=== PATIENT | male | born 1930 | race Caucasian/White ===

== ENCOUNTER → 2019-01-15 | Outpatient (CLI) | payer OTHER, MEDICARE ==
[~2019-01-15] MED LIST: ALBUTEROL; ALBUTEROL2.5 MG/0.1 IH; AUGMENTIN 875875 MG PO; FLONASE 0.05%50 MCG NS; PREDNISONE50 MG PO; PROTONIX40 M2 PO; TUSSIONEX PENN473 ML PO; XANAX 0.5 MG0.5 M1 PO; ZOCOR 20 MG TAB20 M1 PO
== END ==
LOC: RAD 09:14
DX: M51.36 Other intervertebral disc degeneration, lumbar region (principal)

== ENCOUNTER 2019-08-23 15:17 | Inpatient (IN) | payer OTHER, MEDICARE ==
[~2019-08-23] VITALS: Ht 172.7 cm; Wt 73.9 kg
--- NOTE | ~2019-08-23 | HC ---
[facility] [place] [address] CONSULTATION Name: HEVER MEADE Room #: 356-P ADM IN M.R.#: [id number] Admission: 08/23/19 Attend Phys: Cuong Augustine MD Discharge: Date of : 32 Report #: [id number] THIS REPORT FOR: cc: Janessa Kwon,Adrian Sin MD ~ CC: Janessa Augustine DATE OF SERVICE: 08/27/2019 HISTORY OF PRESENT ILLNESS: This is an 89-year-old white male who was originally admitted to [facility] on 08/23/2019 with increased shortness of breath or chills. He was diagnosed with iksfp-pc-zizlpyq COPD exacerbation. He is rule out COVID-19 and testing has been negative thus far. Denies use of home oxygen. He is a premorbid walker ambulator. He notes he is feeling better today. We are seeing him in rehabilitation medicine consultation. PAST MEDICAL HISTORY: Includes elevated cholesterol, asthma, hypothyroidism, COPD without need for home O2, arrhythmia, status post AICD, and history of degenerative arthritis. MEDICATIONS: Please see the full medication listing. ALLERGIES: No known drug allergies. SOCIAL HISTORY: He lives in a house with his and a son, 2 steps to get in. He did not utilize a gait aid up until just a couple of days prior to admission when he started utilizing a walker. REVIEW OF SYSTEMS: Did not offer any current complaints of chest pain, shortness of breath or abdominal discomfort. PHYSICAL EXAMINATION: GENERAL: An 83-year-old white male in no obvious distress. He is alert, pleasant, oriented, follows basic 1 step commands. VITAL SIGNS: Last recorded temperature 96.9, pulse 76, respirations 18, blood pressure 120/52. HEENT: Facies are symmetric. NEUROLOGIC: Functional range of motion of both upper extremities. Strength is grade 4-/5. DTRs are trace to 1. Lower extremities, no focal calf swelling, functional range of motion, strength is grade 4-/5. DTRs are trace to 1. He indicates he has gotten up and ambulated in the room with the walker. Therapy reports are pending. Tone appeared to be intact both lower extremities. He has a slight wheeze, but does not appear to be short of breath and is in no [facility] [address] [place] [address] CONSULTATION Name: HEVER MEADE Room #: 356-P [facility] IN [facility].#: [id number] Admission: 08/23/19 Attend Phys: Cuong Augustine MD Discharge: Date of : 32 Report #: [id number]. IMPRESSION: An 83-year-old white male with the following problem list: 1. Chronic obstructive pulmonary disease exacerbation. 2. COVID negative x 1. 3. Chronic kidney disease. 4. History of arrhythmia, status post automatic implantable cardioverter-defibrillator. 5. History of asthma. 6. Degenerative arthritis. 7. Elevated cholesterol. PLAN: Therapy evaluations are underway. The patient indicates he has been up ambulatory in the room with staff utilizing his walker. We would hope that he will be able to return directly home as he further medically stabilizes. At this point, we will continue to follow along with you regarding his rehab therapy needs. By: [id number] [id number] Adrian Walker MD /nt
[2019-08-23 15:18] VITALS: BP 105/56
[2019-08-23 16:05] LABS: URINE BILIRUBIN NEGATIVE (Negative); URINE BLOOD 1+ (Negative); URINE CLARITY CLEAR; URINE COLOR YELLOW; URINE GLUCOSE-RANDOM* NEGATIVE (Negative); URINE KETONES NEGATIVE (Negative); URINE LEUKOCYTES-REFLEX NEGATIVE (Negative); URINE NITRITE-REFLEX NEGATIVE (Negative); URINE PROTEIN (DIPSTICK) NEGATIVE (Negative); URINE UROBILINOGEN 0.2 E.U./dl (0.2-1.0)
[2019-08-23 16:10] LABS: SQUAMOUS None Seen /LPF (0-3)
[2019-08-23 16:11] LABS: BACTERIA-REFLEX None Seen /HPF (None Seen); CASTS None Seen /LPF (None Seen); CRYSTALS None Seen /LPF (None Seen); URINE RBC 0-2 Rare /HPF (0-2); URINE WBC-REFLEX None Seen /HPF (0-5)
[2019-08-23 16:35] LABS: ABSOLUTE NEUTROPHILS 11.5 thou/uL (1.4-8.2); BASOPHILS 0.3 % (0.0-2.0); EOSINOPHILS 0.1 % (0.0-3.0); HEMATOCRIT 33.3 % (42.0-52.0); LYMPHOCYTES 2.1 % (24.0-44.0); MCH 33.1 pg (26.0-34.0); MCHC 33.1 g/dL (28.0-37.0); MCV 99.8 fL (80.0-100.0); MONOCYTES 3.5 % (1.0-8.0); PLATELET COUNT 200 thou/uL (150-400); RBC 3.34 mil/uL (4.50-6.00); RDW 16.4 % (10.5-14.5); WBC 12.2 thou/uL (4.0-11.0)
[2019-08-23 16:48] LABS: INR 1.5; PROTIME 15.6 Seconds (9.3-11.4)
[2019-08-23] MEDS ORDERED: ASA81BEC PO (16:48)
[2019-08-23] MEDS ORDERED: TYLENOL325 M1 PO (16:48)
[2019-08-23] MEDS ORDERED: AMIODARONE HCL400 MG PO (16:48)
[2019-08-23] MEDS ORDERED: LIPITOR10 MG PO (16:49)
[2019-08-23] MEDS ORDERED: CALCIUM500 MG PO (16:49)
[2019-08-23] MEDS ORDERED: CENTRUM SILVER1 EAC7 PO (16:49)
[2019-08-23] MEDS ORDERED: VITAMIN D310 MC3 PO (16:50)
[2019-08-23] MEDS ORDERED: PRADAXA75 MG PO (16:50)
[2019-08-23] MEDS ORDERED: FUROSEMIDE 40 M40 MG PO (16:51)
[2019-08-23] MEDS ORDERED: FISH OIL 1,0001 EAC9 PO (16:51)
[2019-08-23] MEDS ORDERED: PLAQUENIL200 MG PO ×2 (16:51→16:59)
[2019-08-23] MEDS ORDERED: LEVO-T50 MCG PO (16:51)
[2019-08-23] MEDS ORDERED: PEPTO-BISMOL262 M1 PO (16:52)
[2019-08-23] MEDS ORDERED: SENNA PLUS TAB1 EACH PO (16:52)
[2019-08-23] MEDS ORDERED: SPIRONOLACTONE25 MG PO (16:53)
[2019-08-23 17:04] LABS: ANION GAP 12 mmol/L (7-16); BUN 47 mg/dL (7-18); CALCIUM 8.9 mg/dL (8.5-10.1); CHLORIDE 99 mmol/L (98-107); CO2 22 mmol/L (21-32); CREATININE 2.5 mg/dL (0.7-1.3); GLUCOSE 99 mg/dL (74-106); POTASSIUM 4.9 mmol/L (3.5-5.1); SODIUM 133 mmol/L (136-145)
[2019-08-23 17:13] LABS: ALBUMIN 3.1 g/dL (3.4-5.0); MAGNESIUM 1.4 mg/dL (1.8-2.4); SGOT 33 U/L (15-37); SGPT 50 U/L (30-65); TOTAL BILIRUBIN 1.1 mg/dL (<0.1-1.0); TOTAL PROTEIN 7.8 g/dL (6.4-8.2); TROPONIN-I <0.06 ng/mL (<0.06)
[2019-08-23] MEDS ORDERED: MAG-OXIDE400 MG PO ×2 (18:10→18:21)
[2019-08-23] MEDS ORDERED: AUGMENTIN 875-1 EACH PO (18:10)
[2019-08-23] MEDS ORDERED: PREDNISONE 20 M20 MG PO ×2 (18:10→18:21)
[2019-08-23] MEDS ORDERED: ALBUTEROL2.5 MG/31 INH (18:21)
[2019-08-23 19:57] VITALS: BP 108/50
[2019-08-23 20:37] VITALS: BP 127/50
[2019-08-23 22:28] VITALS: BP 110/54
[2019-08-24 04:57] LABS: HEMATOCRIT 29.6 % (42.0-52.0); HEMOGLOBIN 9.6 gm/dL (14.0-18.0); MCH 32.9 pg (26.0-34.0); MCHC 32.5 g/dL (28.0-37.0); MCV 101.3 fL (80.0-100.0); RBC 2.93 mil/uL (4.50-6.00); RDW 16.7 % (10.5-14.5); WBC 15.1 thou/uL (4.0-11.0)
[2019-08-24 05:10] LABS: CALCIUM 8.2 mg/dL (8.5-10.1); CREATININE 2.5 mg/dL (0.7-1.3); MAGNESIUM 1.7 mg/dL (1.8-2.4); POTASSIUM 5.2 mmol/L (3.5-5.1)
[2019-08-24 08:07] VITALS: BP 146/64
--- NOTE | 2019-08-24 08:15 | EKG ---
[facility] [place] [address] ELECTROCARDIOGRAM REPORT Name: HEVER MEADE Room #: 356-P ADM IN M.R.#: [id number] Admission: 08/23/19 Attend Phys: Cuong Augustine MD Discharge: Date of : 32 Report #: [id number] THIS REPORT FOR: cc: Janessa Kwon,Janessa Doe,Flynn Moctezuma MD [facility] ~ THIS REPORT FOR: //name// [facility] ED Test Date: 2019-08-23 Test Time: 15:30:33 Pat Name: HEVER MEADE Department: Room: 356 Gender: M Bead Inspector: CLINT : 1930 Requested By: Jero Fair Order Number: [id number] MD: Flynn Subramanian Measurements Intervals Adrian Rate: 81 P: MN: QRS: 13 QRSD: 145 T: 20 QT: 437 QTc: 508 Interpretive Statements Probable sinus rhythm Multiple ventricular premature complexes Right bundle branch block Baseline wander in lead(s) I,II,III,aVR,aVL,aVF,V4 Compared to ECG 04/06/2013 06:47:18 No significant change was found Electronically Signed On 08-24-2019 8:14:14 CDT by Flynn Subramanian [email or web address] <ELECTRONICALLY SIGNED> By: Flynn Subramanian MD, [facility] 08/24/19 0814 29 29 Flynn Subramanian MD, [facility] /EPI
[2019-08-24 10:59] VITALS: BP 130/47
[2019-08-24 17:33] VITALS: BP 120/49
[2019-08-24 21:33] VITALS: BP 132/51
[2019-08-24 23:23] LABS: URINE BILIRUBIN NEGATIVE (Negative); URINE BLOOD 2+ (Negative); URINE CLARITY CLEAR; URINE COLOR YELLOW; URINE GLUCOSE-RANDOM* NEGATIVE (Negative); URINE KETONES NEGATIVE (Negative); URINE LEUKOCYTES NEGATIVE (Negative); URINE NITRITE NEGATIVE (Negative); URINE PROTEIN (DIPSTICK) NEGATIVE (Negative); URINE SPECIFIC GRAVITY 1.015 (1.005-1.035); URINE UROBILINOGEN 0.2 E.U./dl (0.2-1.0)
[2019-08-24 23:30] LABS: BACTERIA 1-9 Few /HPF (None Seen); CASTS None Seen /LPF (None Seen); CRYSTALS None Seen /LPF (None Seen); SQUAMOUS None Seen /LPF (0-3); URINE RBC 0-2 Rare /HPF (0-2); URINE WBC None Seen /HPF (0-5)
[2019-08-25 05:55] VITALS: BP 136/56
[2019-08-25 06:30] LABS: MCH 32.6 pg (26.0-34.0); MCHC 32.2 g/dL (28.0-37.0); MCV 101.1 fL (80.0-100.0); RBC 2.77 mil/uL (4.50-6.00); RDW 16.6 % (10.5-14.5); WBC 16.3 thou/uL (4.0-11.0)
[2019-08-25 06:45] LABS: CALCIUM 8.2 mg/dL (8.5-10.1); CREATININE 2.2 mg/dL (0.7-1.3); POTASSIUM 4.7 mmol/L (3.5-5.1)
[2019-08-25 11:39] VITALS: BP 136/60
[2019-08-25 19:29] VITALS: BP 112/46
[2019-08-26 05:00] VITALS: BP 122/52
[2019-08-26 08:27] VITALS: BP 120/65
[2019-08-26 18:36] VITALS: BP 137/57
[2019-08-27 05:28] VITALS: BP 145/62
[2019-08-27 09:18] VITALS: BP 130/68
[2019-08-27 11:55] VITALS: BP 120/52
[2019-08-27 15:00] VITALS: BP 120/52
[2019-08-27 16:00] VITALS: BP 141/58
[2019-08-27 20:16] VITALS: BP 110/67
[2019-08-28 04:30] VITALS: BP 124/58
[2019-08-28 08:30] VITALS: BP 136/56
[2019-08-28 20:57] VITALS: BP 142/67
[2019-08-29 05:00] VITALS: BP 128/65
[2019-08-29 07:16] VITALS: BP 129/67
[2019-08-29] MEDS ORDERED: LEVAQUIN 500 M500 M3 PO (08:24)
[2019-08-29] MEDS ORDERED: PREDNISONE 5 MG5 M1 PO (08:29)
[2019-08-29 10:39] VITALS: BP 120/52
== END 2019-08-29 13:41 | disposition home health service (06) | DRG 189 ==
LOC: ER 15:17 → EROBS 18:52 → 3W 18:52 → 4S 08-27 18:03
PROVIDERS: Emergency Medicine; Hospitalist; Nurse Practitioner Family; ADMIT Hospitalist
DX: J96.00 Acute respiratory failure, unspecified whether with hypoxia or hypercapnia (principal); R65.11 Systemic inflammatory response syndrome (SIRS) of non-infectious origin with acute organ dysfunction; J44.1 Chronic obstructive pulmonary disease with (acute) exacerbation; E78.00 Pure hypercholesterolemia, unspecified; E83.42 Hypomagnesemia; B97.4 Respiratory syncytial virus as the cause of diseases classified elsewhere; M19.90 Unspecified osteoarthritis, unspecified site; N18.3 Chronic kidney disease, stage 3 (moderate); Z20.828 Contact with and (suspected) exposure to other viral communicable diseases; Z79.82 Long term (current) use of aspirin; Z95.810 Presence of automatic (implantable) cardiac defibrillator; Z79.899 Other long term (current) drug therapy
CPT/HCPCS: 10102; 10779; 10879

== ENCOUNTER 2019-11-15 11:55 | Inpatient (IN) | payer OTHER, MEDICARE ==
[~2019-11-15] VITALS: Ht 167.6 cm; Wt 65.8 kg
--- NOTE | ~2019-11-15 | HC ---
[facility] [place] [address] CONSULTATION Name: HEVER MEADE Room #: 459-P [facility] IN M.R.#: [id number] Admission: 11/15/19 Attend Phys: Maurice Slater MD Discharge: 11/17/19 Date of : 32 Report #: [id number] THIS REPORT FOR: cc: Janessa Kwon,Adrian Sin MD ~ CC: Janessa Slater DATE OF SERVICE: 11/17/2019 HISTORY OF PRESENT ILLNESS: The patient is an 89-year-old white male who was originally admitted to [facility] on 11/15/2019 with increased falls, 3 falls over the last few days. He has generalized weakness. He had some right lower extremity pain. Knee x-ray was negative. CT of the head was negative. He was diagnosed with utfja-an-ehcvoli renal failure with his creatinine up to 3.4 with baseline usually at 2.2. Also he had significant hyponatremia with sodium down to 127. He was given hypertonic saline and is being monitored regarding his renal function. Creatinine has improved down from 3.4-2.4. He has medical complexity with generalized debilitation. We are seeing him in rehabilitation medicine consultation. PAST MEDICAL HISTORY: Prior medical history includes COPD. He has had a past, AICD. He has a history of asthma, arrhythmia, atrial fibrillation, [place] in 2015, and arthritis. MEDICATIONS: Please see the full medication listing. ALLERGIES: No known drug allergies. SOCIAL HISTORY: He lives in a house with his , although he was actually caring for his . She is now staying with family in [place]. There are 2 steps into the house. There is a son that lives there as well, but he apparently has had a prior CVA and would not be able to assist too much. There is a daughter in [place] and the plan is to go to an assisted living facility in [place] outside of [place]. Daughter in [place] apparently is in the medical field. REVIEW OF SYSTEMS: Did not offer any current complaints of chest pain, shortness of breath or abdominal discomfort. PHYSICAL EXAMINATION: GENERAL: This is an 89-year-old white male in no obvious distress. VITAL SIGNS: Last recorded temperature 97.2, pulse 54, respirations 16, blood pressure 125/59. The patient is alert. HEENT: [place] [address] CONSULTATION Name: HEVER MEADE Room #: 459-P [facility] IN .R.#: [id number] Admission: 11/15/19 Attend Phys: Maurice Slater MD Discharge: 11/17/19 Date of : 32 Report #: [id number] NEUROLOGIC: Facies are symmetric. He follows basic 1 step commands. EXTREMITIES: Functional range of motion of both upper extremities. Strength is probably grade 4-/5. DTRs are trace to 1. Lower extremities: He has some scattered bruises over his lower extremities, no erythema, no focal knee swelling. Has reasonable range of motion. Some venous stasis type changes distally. He is mod assist, sit to stand. Gait was 15 feet, max assist. He can walk up to 10 feet and then his knees start buckling. Lower extremity dressing is mod assist. ASSESSMENT: This is an 89-year-old white male with the following problem list: 1. Medical complexity with generalized debilitation. 2. Acute on chronic renal insufficiency. 3. Hyponatremia. 4. Chronic obstructive pulmonary disease. 5. Prior automatic implantable cardioverter defibrillator. 6. History of gait instability with multiple falls. 7. Hypomagnesemia. 8. Moderate protein-calorie malnutrition. PLAN: The patient is a candidate for an acute -[place] inpatient rehabilitation stay. Can plan on transfer when medically cleared and a bed available. By: 1135 1715 Adrian Walker MD /nt
--- NOTE | ~2019-11-15 | EMS ---
[place] [id number] EMS Patient Care Report Name: HEVER MEADE Room #: 459-P [facility] IN M.R.#: [id number] Admission: 11/15/19 Attend Phys: Maurice Slater MD Discharge: 11/17/19 Date of : 32 Report #: [id number] THIS REPORT FOR: //name// Report Transmitted: 11/18/2019 02:18 EMS Care Summary [place], [place]/[facility] Incident [id number] @ 11/15/2019 11:[address] [place] [address] Patient HEVER MEADE Male, 89 Years 1930 Patient Address [address] [place] [address] Patient History Chronic Obstructive Pulmonary Disease (COPD),Pacemaker/AICD,Hyperlipidemia,Cardiac Condition - Other, Patient Allergies No known allergies, Patient Medications Prednisone, Amiodarone, Furosemide, Spironolactone, Atorvastatin, Chief Complaint Weakness Disposition Transported No Lights/[place] Reason Breathing Problem Transported To [facility] Narrative Called to the scene for SOB. Upon arrival, pt was GRAFF x 3 being assisted out to the EMS cot and then loaded into the ambulance w/o incident. Pt Granddaughter reported he has had generalized weakness for past 5-7 days, falls [facility] [address] [place] [address] EMS Patient Care Report Name: HEVER MEADE Room #: 459-P [facility] IN .R.#: [id number] Admission: 11/15/19 Attend Phys: Maurice Slater MD Discharge: 11/17/19 Date of : 32 Report #: [id number] x 3 since Friday with a possible left knee or leg injury. They request transport to [facility] ER for further eval & tx. Vitals obtained. 4 Lead. 20g IV and D-stick. Vitals obtained. En route: no changes. RR to [facility]. Arrived: pt taken to ER #2, pt care & report to ER staff. Initial Vitals @11:41P: 63,CO: 1,SpO2: 97, @11:35P: 39,CO: 2,SpO2: 96, @11:34P: 74,R: 16,BP: 111/62,Pain: 0/10,GCS: 15,SpO2: 94,Revised Trauma: 12, @11:42P: 61,BP: 126/71,Pain: 0/10,GCS: 15,Glucose: 84,SpO2: 97,MS Suspected: false Assessments @11:30MENTAL:Person Oriented,Time Oriented,Place Oriented,Event Oriented,SKIN:HEENT:LUNG SOUNDS:ABDOMEN:PELVIS//GI:EXTREMITIES:Left Leg: Other,Left Arm: No Abnormalities,Right Arm: No Abnormalities,Right Leg: No Abnormalities,PULSE:Radial: 2+ Normal,NEURO:No Abnormalities, Impression Generalized Weakness Procedures @11:41Saline Lock 8cc (20 ga) Site: Antecubital-LeftResponse: UnchangedSucceeded@11:463-Lead ECGResponse: UnchangedSucceeded@11:46StretcherResponse: Unchanged@11:30ALS AssessmentResponse: UnchangedSucceeded Timeline 11:23,Call Received 11:23,Dispatch Notified 11:25,Dispatched 11:25,En Route 11:29,On Scene 11:30,At Patient 11:30,ALS Assessment,Response: UnchangedSucceeded, 11:34,BP: 111/62 M,PULSE: 74,RR: 16 R,SPO2: 94 Ox,ETCO2: ,BG: ,PAIN: 0,GCS: 15, 11:35,BP: / M,PULSE: 39,RR: R,SPO2: 96 Ox,ETCO2: ,BG: ,PAIN: ,GCS: , 11:41,Saline Lock 8cc 20 ga Site: Antecubital-Left,Response: UnchangedSucceeded, 11:41,BP: / M,PULSE: 63,RR: R,SPO2: 97 Ox,ETCO2: ,BG: ,PAIN: ,GCS: , 11:42,BP: 126/71 M,PULSE: 61,RR: R,SPO2: 97 Ox,ETCO2: ,B,PAIN: 0,GCS: 15, 11:44,Depart Scene 11:46,3-Lead ECG,Response: UnchangedSucceeded, 11:46,Stretcher,Response: Unchanged 11:53,At Destination 12:18,Call Closed [address] [address] EMS Patient Care Report Name: HEVER MEADE [place] Room #: 459-P [facility] IN [facility].#: [id number] Admission: 11/15/19 Attend Phys: Maurice Slater MD Discharge: 11/17/19 Date of : 32 Report #: [id number] Disclaimer v1.1 Copyright 2020 [employer] This EMS Care Summary contains data elements from the applicable legal record (which may be displayed differently). It is designed to provide pertinent information for the following purposes: continuity of care, clinical quality, and state data reporting. The complete legal record is available to ED staff and administrators of the receiving hospital in [facility]'s Patient Tracker. All data is provided "as is."
[~2019-11-15 11:55] MED LIST changes: +ALBUTEROL2.5 MG/31 INH; +AMIODARONE HCL400 MG PO; +ASA81BEC PO; +AUGMENTIN 875-1 EACH PO; +CALCIUM500 MG PO; +CENTRUM SILVER1 EAC7 PO; +FISH OIL 1,0001 EAC9 PO; +FUROSEMIDE 40 M40 MG PO; +LEVAQUIN 500 M500 M3 PO; +LEVO-T50 MCG PO; +LIPITOR10 MG PO; +MAG-OXIDE400 MG PO; +PEPTO-BISMOL262 M1 PO; +PLAQUENIL200 MG PO; +PRADAXA75 MG PO; +PREDNISONE 20 M20 MG PO; +PREDNISONE 5 MG5 M1 PO; +SENNA PLUS TAB1 EACH PO; +SPIRONOLACTONE25 MG PO; +TYLENOL325 M1 PO; +VITAMIN D310 MC3 PO
[2019-11-15 11:56] VITALS: BP 129/75
[2019-11-15 12:36] LABS: ABSOLUTE NEUTROPHILS 10.9 thou/uL (1.4-8.2); BASOPHILS 0.7 % (0.0-2.0); EOSINOPHILS 0.2 % (0.0-3.0); HEMATOCRIT 29.4 % (42.0-52.0); HEMOGLOBIN 9.7 gm/dL (14.0-18.0); LYMPHOCYTES 9.5 % (24.0-44.0); MCH 31.6 pg (26.0-34.0); MCV 95.6 fL (80.0-100.0); MONOCYTES 7.3 % (1.0-8.0); PLATELET COUNT 274 thou/uL (150-400); POLYS 82.3 % (36.0-66.0); RBC 3.07 mil/uL (4.50-6.00); WBC 13.2 thou/uL (4.0-11.0)
[2019-11-15 12:50] LABS: CALCIUM 8.5 mg/dL (8.5-10.1); CREATININE 3.4 mg/dL (0.7-1.3); POTASSIUM 4.9 mmol/L (3.5-5.1)
[2019-11-15 12:53] LABS: ALBUMIN 2.6 g/dL (3.4-5.0); TOTAL BILIRUBIN 0.8 mg/dL (0.2-1.0); TOTAL PROTEIN 6.9 g/dL (6.4-8.2)
[2019-11-15 13:35] LABS: MAGNESIUM 1.5 mg/dL (1.8-2.4); TROPONIN-I <0.06 ng/mL (<0.06)
[2019-11-15 13:42] LABS: URINE BILIRUBIN NEGATIVE (Negative); URINE BLOOD 3+ (Negative); URINE CLARITY CLEAR; URINE COLOR YELLOW; URINE GLUCOSE-RANDOM* NEGATIVE (Negative); URINE KETONES NEGATIVE (Negative); URINE LEUKOCYTES-REFLEX NEGATIVE (Negative); URINE NITRITE-REFLEX NEGATIVE (Negative); URINE PROTEIN (DIPSTICK) NEGATIVE (Negative); URINE SPECIFIC GRAVITY 1.015 (1.005-1.035); URINE UROBILINOGEN 0.2 E.U./dl (0.2-1.0)
[2019-11-15 13:54] LABS: BACTERIA-REFLEX 1-9 Few /HPF (None Seen); SQUAMOUS None Seen /LPF (0-3); URINE RBC 3-10 Few /HPF (0-2); URINE WBC-REFLEX None Seen /HPF (0-5)
[2019-11-15 14:00] LABS: CRYSTALS None Seen /LPF (None Seen)
[2019-11-15 14:17] LABS: APTT 59.7 Seconds (24.5-32.8); INR 1.5; PROTIME 15.4 Seconds (9.3-11.4)
--- NOTE | 2019-11-15 14:23 | EKG ---
[facility] [place] [address] ELECTROCARDIOGRAM REPORT Name: HEVER MEADE Room #: REG [facility]#: [id number] Admission: 11/15/19 Attend Phys: Discharge: Date of : 32 Report #: [id number] THIS REPORT FOR: cc: Janessa Kwon Diane C. DO Couchonnal, Luis F. MD ~ THIS REPORT FOR: //name// [facility] ED Test Date: 2019-11-15 Test Time: 12:19:52 Pat Name: HEVER MEADE Department: Room: Gender: Staff Auditor: [facility] : 1930 Requested By: Jero Fair Order Number: [id number] MD: Sonny Dow Measurements Intervals [place] Rate: 67 P: 33 NM: 216 QRS: 29 QRSD: 156 T: 5 QT: 458 QTc: 484 Interpretive Statements Sinus rhythm Borderline prolonged NM interval Right bundle branch block Compared to ECG 08/23/2019 15:30:33 Ventricular premature complex(es) no longer present Electronically Signed On 11-15-2019 14:23:19 CDT by Sonny Dow [email or web address] <ELECTRONICALLY SIGNED> By: Sonny Dow MD 11/15/19 1423 1219 1219 Sonny Dow MD /EPI
[2019-11-15 15:37] VITALS: BP 152/57
[2019-11-15 15:48] VITALS: BP 140/55
[2019-11-15] MEDS ORDERED: HYDROXYCHLOROQ200 M1 PO (16:55)
[2019-11-16 06:00] LABS: ABSOLUTE NEUTROPHILS 7.1 thou/uL (1.4-8.2); BASOPHILS 0.2 % (0.0-2.0); EOSINOPHILS 0.8 % (0.0-3.0); LYMPHOCYTES 12.6 % (24.0-44.0); MCH 32.2 pg (26.0-34.0); MCHC 33.3 g/dL (28.0-37.0); MCV 96.6 fL (80.0-100.0); MONOCYTES 6.5 % (1.0-8.0); PLATELET COUNT 231 thou/uL (150-400); POLYS 79.9 % (36.0-66.0); RBC 2.79 mil/uL (4.50-6.00); WBC 8.9 thou/uL (4.0-11.0)
[2019-11-16 06:35] LABS: CALCIUM 7.5 mg/dL (8.5-10.1); CREATININE 2.6 mg/dL (0.7-1.3); MAGNESIUM 2.6 mg/dL (1.8-2.4); POTASSIUM 4.6 mmol/L (3.5-5.1)
[2019-11-16 07:12] VITALS: BP 118/49
[2019-11-16 11:00] VITALS: BP 118/49
--- NOTE | 2019-11-16 11:56 | NUR ---
PT ADMITTED RELATED TO FALLING, WEAKNESS, MACHO, CKD. CM REVIEWED CHART AND SPOKE WITH CARE TEAM. CM MET WITH PT AND HIS GDTR AT BEDSIDE THIS DAY. PT IS A&O X4 ALTHOUGH SLEEPY. PT INDICATED HE LIVES IN A HOUSE WITH HIS SPOUSE AND SON. HE INDICATED 2 STEPS TO ENTER AND NO STEPS HE USES INSIDE. 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 PT INDICATED HE HAD BEEN INDEPENENT WITH ADLS STOCKFEED MILLER. PT'S GDTR NAMRATA INDICATED THAT PT'S DTR ENDER [facility]MONTE [phone] [phone] IS BEST CONTACT AND HC DPOA. GDTR INDICATED THAT THEY WERE SUPPOSED TO HAVE PD SERVICES THROUGH [facility] STARTING TODAY. PT INDICATED HE HAD BEEN ON SERCICES WITH [facility] AND HAD [facility] IN THE PAST. CM TOREACH OUR TO DTR AND FOLLOW INDICATED WITH DC PLANNING.
[2019-11-16 16:00] VITALS: BP 124/54
[2019-11-16 20:05] VITALS: BP 129/51
--- NOTE | 2019-11-16 20:27 | NUR ---
ASSUMED PT CARE AT 0700. ON ROOM AIR. ALERT X ORIENTED X 3-4. PT IS WEAK, WORKED WITH PT, 2 PERSON ASST FOR SAFETY USING A GAIT BELT AND WALKER. IV LEFT FA WITH NS RUNNING AT 100ML/HR.NO C/O PAIN. TELE PATIENT. CALL LIGHT IN REACH. FALL PRECT IN PLACE. HOURLY ROUNDING DONE. SHIFT REPORT GIVEN TO NIGHT NURSE.
[2019-11-17 05:52] LABS: CALCIUM 7.7 mg/dL (8.5-10.1); CREATININE 2.3 mg/dL (0.7-1.3); MAGNESIUM 2.3 mg/dL (1.8-2.4); POTASSIUM 4.6 mmol/L (3.5-5.1)
[2019-11-17 08:00] VITALS: BP 125/59
[2019-11-17 08:56] LABS: CALCIUM 7.7 mg/dL (8.5-10.1); CREATININE 2.4 mg/dL (0.7-1.3); PHOSPHORUS 3.4 mg/dL (2.5-4.9)
--- NOTE | 2019-11-17 09:20 | NUR ---
progress pt slept most of shift incontinent of urine at times buttocks pink from sitting on bedpan cleansed and barrier cream applied advised pt not to stay on bedpans that long. voiding qs vss continue poc.
--- NOTE | 2019-11-17 10:30 | NUR ---
RD consult received for possible wt loss hx. Admit with weakness, falling, MACHO. Geriatric TRIMMING ASSEMBLER has identified sarcopenia with reduced library clerk strength measurements. [employer] wts show 163 lb in August and 155 lb in July, however pt states his usual wt always around 145 lb and he verbalizes no wt loss and good appetite. On renal diet-does have hx CKD and current MACHO improving with IVF administered, bun/creatinine decreasing. K and phos wnl. Would recommend discontinue renal restriction and consider just 2g Na diet to provide least restrictive diet for pt. Otherwise low nutrition risk
--- NOTE | 2019-11-17 10:33 | NUR ---
Recommend remove renal restricted diet and change to 2g Na. Pt bun/cr improving with IVF and rehydration. K+ and phos wnl. Need a physician order to liberalize diet.
--- NOTE | 2019-11-17 10:36 | NUR ---
PT AND OT RECOMMENDING POST ACUTE CARE STAY. CM CALLED AND SPOKE WITH PT'S DTR WHO LIVES IN [facility]. SHE INDICATED THAT THEY ARE RECEPTIVE TO SNF OR ACUTE REHAB WHICHEVER IS APPROPRIATE. 5N CONSULT ENTERED. SHE INDICATED THAT HER MOM IS STAYING WITH HER AT THE MOMENT AND THAT THEY ARE LOOKING INTO AL PLACEMENT NEAR HER. CM TO FOLLOW INDICATED WITH DC PLANNING.
[2019-11-17 11:00] VITALS: BP 125/59
--- NOTE | 2019-11-17 13:55 | NUR ---
5N ASSESSED AND INDICATED THAT PT WOULD BE A GOOD CANDIDATE FOR 5N ACUTE INPATIENT REHAB. CARE TEAM INDICATED PT WOULD BE MEDICALLY STABLE TO DC TO 5N THIS DAY. CM MET WITH PT AND HE IS AWARE AND AGREEABLE. CM CALLED AND NOTIFIED PT'S DTR SHE IS AWARE AND AGREEABLE.
[2019-11-17] MEDS ORDERED: VOLTAREN100 GM TOP (13:57)
[2019-11-17] MEDS ORDERED: CALCIUM 600 +1 EAC1 PO (13:57)
--- NOTE | 2019-11-17 20:05 | NUR ---
ASSUMED PT CARE AT 0700. PT ALERT X ORIENTED X 4, FORGETFUL AT TIMES.ON ROOM AIR, ON RENAL DIET. 2 PERSON ASST FOR SAFETY.LBM TODAY MORNING. RN CALLED PT'S SON TODAY MORNING THE PT SAID, HE NEED TO TALK TO HIS , SON SAID HE WILL CALL BACK LATER. PT MOVED TO 5N AND PT'S DAUGHTER WAS INFORMED BY THE CM REGARDING THE TRANSFER. REPORT GIVEN TO RN AT 5N.
== END 2019-11-17 15:11 | DRG 70 ==
LOC: ER 11:55 → 4W 14:24 → EROBS 14:24 → 4W 15:51
PROVIDERS: Emergency Medicine; Nurse Practitioner; ADMIT Internal Medicine; ATTEND Internal Medicine
DX: G93.41 Metabolic encephalopathy (principal); N17.0 Acute kidney failure with tubular necrosis; E43 Unspecified severe protein-calorie malnutrition; E44.0 Moderate protein-calorie malnutrition; E87.1 Hypo-osmolality and hyponatremia; E83.42 Hypomagnesemia; J44.9 Chronic obstructive pulmonary disease, unspecified; E03.9 Hypothyroidism, unspecified; E78.5 Hyperlipidemia, unspecified; M62.84 Sarcopenia; G47.00 Insomnia, unspecified; I48.91 Unspecified atrial fibrillation; N18.9 Chronic kidney disease, unspecified; D64.9 Anemia, unspecified; R31.9 Hematuria, unspecified; H10.9 Unspecified conjunctivitis; Z95.810 Presence of automatic (implantable) cardiac defibrillator; Z68.23 Body mass index [BMI] 23.0-23.9, adult; Z79.01 Long term (current) use of anticoagulants; I25.2 Old myocardial infarction
CPT/HCPCS: 10045

== ENCOUNTER 2019-11-17 14:19 | Inpatient (IN) | payer OTHER, MEDICARE ==
[~2019-11-17] VITALS: Ht 167.6 cm; Wt 65.3 kg
[~2019-11-17 14:19] MED LIST changes: +CALCIUM 600 +1 EAC1 PO; +HYDROXYCHLOROQ200 M1 PO; +VOLTAREN100 GM TOP
--- NOTE | 2019-11-17 16:21 | NUR ---
PT ARRIVED AT 1530 FROM ACUTE. ALERT AND ORIENTED*4 BUT FORGETFUL. FATIGUED AND SLEEPY. VITALS ARE STABLE. C/O PAIN IN BLE, REPOSITIONED. REDNESS NOTED AROUND THE SACRAL AREA, PT ENCOURAGED TO LAY ON THE SIDE. UP WITH 2 MIN-MOD ASSIST, GB AND WALKER. Q1H VISUAL CHECKS. CALL LIGHT WITHIN REACH. FALL PRECAUTIONS IN PLACE
[2019-11-17 19:24] VITALS: BP 123/53
--- NOTE | 2019-11-17 23:13 | NUR ---
ASSUMED CARE OF PT AT 1915. PT IS A&OX3. IS ON ROOM AIR. IS STABLE. HAS BRISING ON HANDS & ARMS. REPORTS PAIN IN BILAT KNEES THAT IS BEING MANAGED WITH ORAL & TOPICAL MEDS & OTHER THERAPUETIC TECHNIQUES. PT HAS OINTMENT ON EYES. PT REPORTED "MY EYES WERE CRUSTING SO THEY PUT THIS SLAVE ON IT". PT IS UP WITH MOD-MAX ASSIST OF 2, STAND, PIVOT WITH GB TO TRANSFER. FALL PRECAUTIONS & HOURLY ROUNDING CONTINUED THIS SHIFT. LABS & VITALS REVIEWED. PT CONSENT FORMS NEED SIGNING & ARE ON THE BEDSIDE TABLE. PT IS CURRENTLY SLEEPING. CALL LIGHT WITHIN REACH. WILL CONTINUE TO MONITOR.
--- NOTE | 2019-11-18 05:15 | NUR ---
Assumed pt care at 0100. A/OX4. Denies pain on assessment. Continent of B&B. Bruising noted on frederick arms r/t anticougalant therapy. Up with moderate assist RW/GB to BSC. Fall precautions in place,calls approx for help.
[2019-11-18 05:55] LABS: HEMATOCRIT 29.5 % (42.0-52.0); HEMOGLOBIN 9.6 gm/dL (14.0-18.0); MCH 31.3 pg (26.0-34.0); MCHC 32.3 g/dL (28.0-37.0); MCV 96.9 fL (80.0-100.0); RBC 3.05 mil/uL (4.50-6.00); RDW 17.2 % (10.5-14.5)
[2019-11-18 06:12] LABS: CALCIUM 7.8 mg/dL (8.5-10.1); CREATININE 2.4 mg/dL (0.7-1.3)
[2019-11-18 08:00] VITALS: BP 126/55
[2019-11-18 15:49] VITALS: BP 126/55
--- NOTE | 2019-11-18 15:50 | NUR ---
Case opened to follow for dc planning. Pt admitted to acute rehab d/t medical complexity and debility. Utility Service Worker spoke with his dtr/dpoa Melodie regarding his dc planning needs. Pt's spouse is currently staying with Melodie in [place], [place] but will be returning home this week. Melodie indicates that the pt, his spouse and their disabled son Jr live in their home of 60 years. They have 2-3 steps to enter, then they can stay on the main level. The pt is normally indep with a rwalker within the home. He had HH per Maral prior to admission for wound care (skin tears on his arm). The pt's dtr was looking into ALFs near her but they are hoping to return home with hh before making "such a big move". Pt's dtr has hired [employer] to provide private duty help T/TH/Sat for 6hrs each day for both of them. They would [facility] to [facility] for RN and therapy f/u. She was advised of team conf on Friday and cm role. Will follow with her and the pt next week to determine ELOS and any other potential dc needs. The pt has a rwalker at home. Will follow.
--- NOTE | 2019-11-18 18:46 | NUR ---
ASSUMED CARE AT SHIFT CHANGE, ALERT AND ORIENTED, VSS AND AFEBRILE. TOLERATES DIET, AND SCHEDULE MEDS GIVEN. PROGRESSING TOWARDS GOALS SLOWLY AND WILL CONTINUE WITH POC.
[2019-11-18 20:35] VITALS: BP 125/48
--- NOTE | 2019-11-19 03:45 | NUR ---
assumed care at approx 1900 evening 11/17. pt lying in bed with head of bed elevated at change of shift. pt alert and oriented x4, appropriate and cooperative. pt voiding per urinal. pt took hs meds with water tolerating well. pt up to w/c to transfer to toilet to have bm tonight. pt appears to be sleeping soundly with hourly rounding checks. bed alarm on and call light in reach. will continue to monitor.
[2019-11-19 08:30] VITALS: BP 113/52
--- NOTE | 2019-11-19 09:45 | NUR ---
Assumed care 0700. Pleasant, cooperative. Up in chair for meals. Gi HERNÁNDEZ was consulted due to warning regarding high Creatinine 2.4 and order for Pradaxa. Gi gave O.K. to give Pradaxa with high Cr. level.
[2019-11-19 19:20] VITALS: BP 116/42
--- NOTE | 2019-11-19 23:20 | NUR ---
Late Day Shift Note: Patient requested second time for Respiratory therapy to give treatment in afternoon. He patiently waited. respiratory department was notified pt. had not been seen all day and wanted treatment. RT department explained his treatments were only as needed. Lung left upper lobe=with slight wheezing confirmed by RT. Pt. felt better after RT tx. Pt. compliant, coopeerative. Assisted to bed after dinner.
--- NOTE | 2019-11-20 02:58 | NUR ---
assumed care at approx 1900 evening 11/18. pt lying in bed with head of bed elevated at change of shift. pt alert and oriented x4, appropriate and cooperative. pt took hs meds with water tolerating well. pt voiding per urinal. pt appears to be sleeping soundly with hourly rounding checks. bed alarm on and call light in reach. will continue to monitor.
[2019-11-20 08:00] VITALS: BP 109/48
--- NOTE | 2019-11-20 12:34 | NUR ---
PATIENT WAS IN BED AWAKE WHEN CARE ASSUMED, ALERT, AND ORIENTED X 2-3, HE IS SAXMAN. LUNGS DIMINISHED IN ALL LOBE PER ASUCULTATION. BS+X4, ABD SOFT, NON-TENDER TO TOUCH. PATIENT IS EATING MEALS, AND DRINKING FLUID FAIRLY WELL. PATIENT CONTINUE TO HAVE HICCUPS, DR. LEAHY NOTIFIED, HE WILL COME AROUND, AND SEE PATIENT. PRN TYRLENOL GIVEN FOR BACK PAIN, WITH PARTIAL EFFECT. PATIENT WORKED WITH PT FOR A SHORT PERIOD OF TIME, NOW BACK IN BED, NO SIGN OF ACUTE DISTRESS NOTED AT THIS TIME, CALL LIGHT IN REACH, FALL PRECAUTION IN PLACE, WILL CONTINUE TO MONITOR.
[2019-11-20 19:50] VITALS: BP 114/50
--- NOTE | 2019-11-21 04:53 | NUR ---
PT IS ALERT AND ORIENTED. HE USES A URINAL HAD AN INCONTINENT EPISODE IN THE NIGHT. PT IS VERY WEAK HE COULD BARELY STAND BY EDGE OF BED WE WERE GETTING HIM READY FOR BED. C/O BACK PAIN GIVEN SOME TYLENOL WITH RELIEF. PT USES VOLTAREN GEL TO MOSTLY HANDS KNEES AND BACK.HE ALSO WAS GIVEN AN ICE ALESSIO TO APPLY TO LEFT HAND FOR PAIN PER HIS REQUEST.BOTTOM IS RED APPLYING ZGUARD.SWALLOWS OKAY. NO LOOSE STOOL IN NOC SHIFT.AFEBRILE. SOUNDS CONGESTED CONTINUES ON RT TREATMENTS.NO DISTRESS NOTED.CALL LIGHT WITHIN REACHFALL PREC IN PLACE.
[2019-11-21 05:09] LABS: HEMATOCRIT 26.4 % (42.0-52.0); HEMOGLOBIN 8.6 gm/dL (14.0-18.0); MCH 31.1 pg (26.0-34.0); MCHC 32.5 g/dL (28.0-37.0); MCV 95.8 fL (80.0-100.0); RBC 2.75 mil/uL (4.50-6.00); RDW 16.8 % (10.5-14.5)
[2019-11-21 05:20] LABS: CALCIUM 7.8 mg/dL (8.5-10.1); CREATININE 2.5 mg/dL (0.7-1.3); MAGNESIUM 1.7 mg/dL (1.8-2.4)
[2019-11-21 08:41] VITALS: BP 110/52
--- NOTE | 2019-11-21 15:01 | NUR ---
PATIENT NEUROTIN HELP AT 1400 - ADVISED BY DR. LEAHY BEING DISCONTINUED.
--- NOTE | 2019-11-21 18:28 | NUR ---
PATIENT ALERT AND ORIENTED X 2-3 - VERY SEDATED THIS MORNING. HAD DIFFICULTY STAYING AWAKE AFTER BREAKFAST - LUNCH WAS POOR CONSUMPTION DUE TO THIS. PATIENT TAKES MEDIATIONS WHOLE AND EASILY. PATIENT WALKED WITH PT AND WAS UP FOR SHORT TIME. DR. LEAHY STOPPED NEUROTIN SUSPECTING CAUSING TO BE LETHARGIC- PATIENT HAS UA ORDERED - UNABLE TO VOID PRIOR TO SHIFT CHANGE AND PASSED ON TO NEXT SHIFT. PATIENT - ONE ASSIST WITH TRANSFERS AND TOLLETING. PATIENT HAS HAD ARTHRITIC DISCOMFORT IN RIGHT HAND AND KNEES DICLOFENAC OINTMENT ON BOARAD TO AID WITH DISCOMFORT. PATIENT ATE DINNER OUT ON THE UNIT AND NOW SLEEPING IN WHEELCHAIR. NO DISCOMFORT WHEN ASKED.
[2019-11-21 19:45] VITALS: BP 108/40
[2019-11-21 23:54] LABS: URINE BILIRUBIN NEGATIVE (Negative); URINE BLOOD 2+ (Negative); URINE CLARITY CLEAR; URINE COLOR YELLOW; URINE GLUCOSE-RANDOM* NEGATIVE (Negative); URINE KETONES NEGATIVE (Negative); URINE LEUKOCYTES-REFLEX NEGATIVE (Negative); URINE NITRITE-REFLEX NEGATIVE (Negative); URINE PROTEIN (DIPSTICK) NEGATIVE (Negative); URINE SPECIFIC GRAVITY <= 1.005 (1.005-1.035); URINE UROBILINOGEN 0.2 E.U./dl (0.2-1.0)
--- NOTE | 2019-11-21 23:57 | NUR ---
ASSUMED CARE OF PT AT 1915. PT IS A&OX3. IS ON ROOM AIR. HAS CONGESTED COUGH. IS STABLE. DENIES PAIN AT THIS TIME. IS UP WITH MAX ASSIST OF 2, GB, STAND PIVOT. FALL PRECAUTIONS & HOURLY ROUNDING CONTINUED THIS SHIFT. PT IS SLEEPING AT THIS TIME. CALL LIGHT WITHIN REACH. UA OBTAINED. LABS & VITALS REVIEWED. WILL CONTINUE TO MONITOR.
[2019-11-22 00:21] LABS: BACTERIA-REFLEX None Seen /HPF (None Seen); CASTS None Seen /LPF (None Seen); CRYSTALS None Seen /LPF (None Seen); MUCUS None Seen strn/LPF (None Seen); SQUAMOUS None Seen /LPF (0-3); URINE RBC 0-2 Rare /HPF (0-2); URINE WBC-REFLEX 0-5 Rare /HPF (0-5)
[2019-11-22 06:15] LABS: HEMATOCRIT 28.1 % (42.0-52.0); HEMOGLOBIN 8.9 gm/dL (14.0-18.0); MCH 30.5 pg (26.0-34.0); MCHC 31.7 g/dL (28.0-37.0); MCV 96.1 fL (80.0-100.0); PLATELET COUNT 246 thou/uL (150-400); RBC 2.92 mil/uL (4.50-6.00); RDW 16.8 % (10.5-14.5); WBC 16.8 thou/uL (4.0-11.0)
[2019-11-22 06:27] LABS: CALCIUM 7.9 mg/dL (8.5-10.1); CREATININE 2.8 mg/dL (0.7-1.3); MAGNESIUM 1.6 mg/dL (1.8-2.4); POTASSIUM 5.4 mmol/L (3.5-5.1)
[2019-11-22 08:04] LABS: ANISOCYTOSIS SLIGHT; POIKILOCYTOSIS SLIGHT
[2019-11-22 08:15] VITALS: BP 92/40
--- NOTE | 2019-11-22 11:55 | NUR ---
per bedside nurse pt granddaughter called stated he can not return if his son is going to need inpt pysch help. not safe him returning home rt his falls. [facility]. cm will cont following as needed for dc needs. cm to reach out to family rt dcp.
--- NOTE | 2019-11-22 16:11 | NUR ---
ASSUMED CARES AT 0700. PT AWAKE ALERT AND ORIENTED*4. DENIES PAIN. EXTREME WEAKNESS NOTED THIS AM REQUIRED 2 MAX ASSIST FOR TRANSFERS. PT HAVING MULTIPLE LOOSE STOOLS THIS AM. HOSPITALIST NOTIFIED OF PT'S CONDITION AND ABNORMAL LABS, ORDERS RECEIVED AND CONSULTS CALLED. PT HAS A FUNGAL INFECTION AROUND SACRAL AND BUTTOCK AREA WITH A OPEN SKIN AREA, ORDERS RECEIVED FOR WOUNDCARE ANTIFUNGAL CREAM APPLIED. IV STARTED ON LEFT FOREARM NS INFUSING AT 80ML/HR PER ORDER. PT REPOSITONED Q2H. Q1H VISUAL CHECKS. CALL LIGHT WITHIN REACH. FALL PRECAUTIONS IN PLACE
[2019-11-22 20:15] VITALS: BP 125/41
--- NOTE | 2019-11-23 02:49 | NUR ---
ASSUMED CARE OF PT AT 1900HRS. PT AOX4 AND LETS NEEDS BE KNOWN. FALL PRECAUTION IN PLACE. ISOLATION IN PLACE FOR R/O C-DIFF. PT IS YET TO PRODUCE SAMPLE. PT ABLULATED WITH 1 ASSIST GB AND A WALKER. PT REPORTED PAIN BUT DENIED NAUSEA OR SOA. PT ABLE TO TURN SELF ON CUE. IVF CONTINUED. PT WAS ABLE TO GET COMFORTABLE AND SLEEP PART OF THE SHIFT. VSS AND NO S/S OF ACUTE DISTRES. WILL CNTINUE TO MONITOR.
[2019-11-23 06:04] LABS: ABSOLUTE NEUTROPHILS 10.4 thou/uL (1.4-8.2); BASOPHILS 0.3 % (0.0-2.0); EOSINOPHILS 0.4 % (0.0-3.0); HEMATOCRIT 23.3 % (42.0-52.0); HEMOGLOBIN 7.6 gm/dL (14.0-18.0); MCHC 32.5 g/dL (28.0-37.0); MCV 95.6 fL (80.0-100.0); MONOCYTES 4.5 % (1.0-8.0); PLATELET COUNT 208 thou/uL (150-400); POLYS 85.8 % (36.0-66.0); RBC 2.44 mil/uL (4.50-6.00); RDW 16.8 % (10.5-14.5); WBC 12.1 thou/uL (4.0-11.0)
[2019-11-23 06:16] LABS: ALBUMIN 1.8 g/dL (3.4-5.0); DIRECT BILIRUBIN 0.1 mg/dL (<0.1-0.2); TOTAL BILIRUBIN 0.6 mg/dL (0.2-1.0); TOTAL PROTEIN 5.3 g/dL (6.4-8.2)
[2019-11-23 06:51] LABS: CALCIUM 7.4 mg/dL (8.5-10.1); CREATININE 2.4 mg/dL (0.7-1.3); MAGNESIUM 1.7 mg/dL (1.8-2.4)
[2019-11-23 08:30] VITALS: BP 105/45
--- NOTE | 2019-11-23 09:25 | HC ---
[facility] [place] [address] CONSULTATION Name: HEVER MEADE Room #: 512-P ADM IN M.R.#: [id number] Admission: 11/17/19 Attend Phys: Adrian Walker MD Discharge: Date of : 32 Report #: [id number] THIS REPORT FOR: cc: Janessa Kwon,Yuniel Wong MD ~ CC: Adrian Kwon DATE OF SERVICE: 11/22/2019 WOUND CARE CONSULTATION PERSONAL PHYSICIAN: Dr. Janessa Kwon. CHIEF COMPLAINT: Gluteal fungal rash. HISTORY OF PRESENT ILLNESS: This is a 89-year-old male who has a history of COPD and frequent falls, who was admitted through the Emergency Department after multiple falls at home as well as just generalized debility. The patient was found to have acute on chronic kidney injury. The patient was treated with IV fluids and became medically stable and then was transferred to the acute rehab floor. Upon arrival to the rehab floor, the patient was noted to have an erythematous fungal type rash in his gluteal region, which we have been asked to assist in the care of. The patient does complain of mild burning, itching and the rash. The patient denies any other associated wounds on his body. Nursing staff confirmed that there were no other noted wounds. PAST MEDICAL HISTORY: Significant for COPD, arrhythmia, status post AICD, permanent pacemaker placement, chronic atrial fibrillation, coronary artery disease, generalized debility, asthma. CURRENT MEDICATIONS: Multiple, I reviewed the patient's medication list. DRUG ALLERGIES: None. SOCIAL HISTORY: The patient has a remote history of smoking, quitting several years ago. Denies alcohol use. Lives at home with his family. FAMILY HISTORY: Not pertinent to current medical condition. REVIEW OF SYSTEMS: CONSTITUTIONAL: The patient denies fevers or chills. NEUROLOGIC: The patient complains of overall generalized weakness, but no isolated weakness in arms or legs. EYES: No complaints. [facility] [address] [place] [address] CONSULTATION Name: HEVER MEADE Room #: 512-P [facility] IN [facility].#: [id number] Admission: 11/17/19 Attend Phys: Adrian Walker MD Discharge: Date of : 32 Report #: [id number] ENT: No complaints. CARDIAC: The patient has trace edema in bilateral lower extremities. No chest pain or palpitation. RESPIRATORY: The patient denies shortness of breath, cough or wheezes. GASTROINTESTINAL: The patient denies nausea, vomiting, abdominal pain. GENITOURINARY: The patient denies urgency or frequency. MUSCULOSKELETAL: No complaints. SKIN: There is moisture-associated dermatitis in the gluteal sacral region. PHYSICAL EXAMINATION: VITAL SIGNS: Stable. The patient is afebrile. GENERAL: This is an alert and oriented x2, person, place, but not time, elderly black white male who is in no obvious distress. HEENT: Normocephalic, atraumatic. Mucous membranes are somewhat dry. Pupils are round. Sclerae white. The patient does have some ptosis to the right eyelid. NECK: Without JVD. LUNGS: Clear. HEART: Irregularly irregular. ABDOMEN: Soft, nontender. SKIN: Evaluation of sacral gluteal region reveals a fungal-associated dermatitis with satellite lesions, erythema, slight tenderness, but no actual warmth. There is significant amount of maceration to the skin itself. There is no sign of any actual open decubitus ulcerations. EXTREMITIES: The patient moves all extremities without difficulty. Bilateral heels are intact. NEUROLOGIC: Cranial nerves 2-12 grossly intact. Motor and sensory grossly intact. LABORATORY DATA: White count 12.1, hemoglobin 7.6, BUN 43, creatinine 2.4, albumin 1.8. Chest x-ray shows no signs of any acute pulmonary disease. IMPRESSION: 1. Moisture-associated dermatitis with fungal rash in the sacral gluteal region. 2. Generalized debility with frequent falls. 3. Atrial fibrillation. 4. Acute on chronic kidney disease. 5. Severe protein-calorie malnutrition, albumin of 1.8. PLAN: We will start antifungal moisture barrier cream to the area. Leave open to air. We will put this on a daily and p.r.n. We will order low air loss mattress, have the patient be turned every 2 hours. We will utilize physical and occupational therapy as per the rehab unit. Nephrology following for the patient for his chronic kidney disease. We will make sure we maximize the [address] [address] CONSULTATION Name: HEVER MEADE [place] Room #: 512-P [facility] IN M.R.#: [id number] Admission: 11/17/19 Attend Phys: Adrian Walker MD Discharge: Date of : 32 Report #: [id number] patient's oral protein supplementation for healing. We will continue all other current medications. We will continue to follow the patient. <ELECTRONICALLY SIGNED> By: Yuniel Miguel MD 11/23/19 0925 0854 6 Yuniel Miguel MD /ramirez
--- NOTE | 2019-11-23 12:35 | NUR ---
team meeting, recommendation: had labs, needed allot of assistance. iv fluids. dc 11/30/2019, possible 24hr supervision/rn primary care, and hh. poor vision.
--- NOTE | 2019-11-23 17:39 | NUR ---
Alert and orientated, forgetful at times. Interactive and compliant. Takes meds whole without difficulty. Stands and transfers with minimal difficulty. Breath sounds clear and bilaterally equal. Congested cough. Reg HR auscultated. Color pale pink with brisk capillary refill and palpable peripheral pulses. +1 edema in lower extremities. NS infusing per L AC site soft and flat without s/o infection, +bld return. Saline locked for therapy. Voiding independently. Active bowel sounds over soft, rounded abdomen. Buttocks slightly reddened, fungal ointment applied. Bruises on forearms and along spine on lower back. Working with OT/PT without difficulty. Sitting up in WC at bedside when not in therapy. 1500 States he needs to have BM. Placed on toilet but passed only flatulance and small amt urine. To ultrasound in WC. No s/o distress. 1745 Ate approximately 50% of dinner. Sitting at bedside without s/o distress. NS infusing without diff.
[2019-11-23 19:47] VITALS: BP 120/35
[2019-11-23 23:19] LABS: URINE BILIRUBIN NEGATIVE (Negative); URINE BLOOD 3+ (Negative); URINE CLARITY CLEAR; URINE COLOR YELLOW; URINE GLUCOSE-RANDOM* NEGATIVE (Negative); URINE KETONES NEGATIVE (Negative); URINE LEUKOCYTES NEGATIVE (Negative); URINE NITRITE NEGATIVE (Negative); URINE PROTEIN (DIPSTICK) NEGATIVE (Negative); URINE SPECIFIC GRAVITY <= 1.005 (1.005-1.035); URINE UROBILINOGEN 0.2 E.U./dl (0.2-1.0)
[2019-11-23 23:29] LABS: URINE CREATININE-RANDOM* 35.2 mg/dL; URINE PROTEIN-RANDOM* 10.7 mg/dL (<11.9)
[2019-11-23 23:53] LABS: BACTERIA None Seen /HPF (None Seen); CASTS None Seen /LPF (None Seen); CRYSTALS None Seen /LPF (None Seen); MUCUS 0-3 Light strn/LPF (None Seen); SQUAMOUS 0-3 Few /LPF (0-3); URINE RBC 0-2 Rare /HPF (0-2); URINE WBC 0-5 Rare /HPF (0-5)
--- NOTE | 2019-11-24 03:32 | NUR ---
TO BED WITH WALKER AND MIN ASSIST, PREFERS TO WEAR BRIEF OVERNIGHT, IS MAKING EFFORT TO TURN ON SIDE EVERY HOUR OR TWO. USING FLUTTER VALVE FOR 6 OR 7 BLOWS AT A TIME. AWAKE AT 0200 AND RESTLESS, THINKING HE DOZED OFF A BIT TOO MUCH IN THE DAYTIME. XANAX GIVEN TO HELP RELAX, PLUS WARM SODA AT THAT TIME. RESTING NOW
[2019-11-24 06:24] LABS: HEMOGLOBIN 7.5 gm/dL (14.0-18.0); MCHC 32.8 g/dL (28.0-37.0); MCV 94.8 fL (80.0-100.0); RBC 2.43 mil/uL (4.50-6.00); RDW 16.7 % (10.5-14.5)
[2019-11-24 06:59] LABS: ALBUMIN 1.8 g/dL (3.4-5.0); CALCIUM 7.9 mg/dL (8.5-10.1); CREATININE 2.3 mg/dL (0.7-1.3)
[2019-11-24 08:00] VITALS: BP 122/47
--- NOTE | 2019-11-24 14:10 | NUR ---
ASSUMED CARES AT 0700. PT AWAKE, ALERT AND ORIENTED*4. DENIES PAIN AT THIS TIME. PT STATED, "THAT PREDNISONE I TAKE CAUSES MY HANDS TO SHAKE AND I KEEP SPILLING THINGS"/ BILL. STATED THIS AFTER ACCIDENTANTLY SPILLING HIS WATER AT BREAKFAST. IV ON LEFT FOREARM REMAINS INTACT AND PATENT, NS ADMINISTERED AT 50ML/HR. CONTINUES TO HAVE REDNESS ON HIS SACRAL AREA, SITE CLEANED AND ANTIFUNGAL CREAM APPLIED. STOOL SAMPLE COLLECTED, RESULTS PENDING. Q1H VISUAL CHECKS. CALL LIGHT WITHIN REACH. FALL PRECAUTIONS IN PLACE
--- NOTE | 2019-11-24 16:56 | NUR ---
FAXED REFERRAL TO [facility] RECEIVED CONFIRMATION AND LEFT MSG WITH FLORA FERREIRA F/U WITH FACILITY IN THE MORNING. DP TO FOLLOW.
[2019-11-24 19:25] VITALS: BP 148/37
--- NOTE | 2019-11-25 02:32 | NUR ---
assumed care at approx 1900 evening 11/23. pt awake at change of shift, alert and oriented x4, appropriate and cooperative. IV fluids infusing to left forearm IV. pt up to bathroom to void before hs. pt also voiding per urinal. pt took hs meds with water tolerating well. pt given snack at hs. pt appears to be sleeping soundly with hourly rounding checks. bed alarm on and call light in reach. will continue to monitor.
[2019-11-25 08:00] VITALS: BP 138/57
--- NOTE | 2019-11-25 10:03 | NUR ---
[facility] wanted clarify if pt was getting dialysis. cm provided verbal report that he is not on dialysis. bedside nurse passed on that son darrick had question about the discharge plan. cm tried calling in but unable to leave message rt phone not taking calls at this time per phone message.
--- NOTE | 2019-11-25 15:02 | NUR ---
ASSUMED CARES AT 0700. PT AWAKE, ALERT AND ORIENTED*4 BUT FORGETFUL. DENIES PAIN AT THIS TIME. VITALS REMAIN STABLE. LEFT FOREARM IV INFILTRATED, IV DC'D, ICE APPLIED. WILL CONTINUE TO MONITOR. SACRAL AREA CLEANED AND ANTIFUNGAL CREAM APPLIED, SITE HEALING. LEFT ELBOW WOUND CLEANED AND DRESSING CHANGED. PT PARTICIPATED WELL IN ALL THERAPIES. SLEEPING AFTER THERAPIES THIS AFTERNOON. UP WITH 1 MIN ASSIST, GB AND WALKER (UNSTEADY GAIT). Q1H VISUAL CHECKS. CALL LIGHT WITHIN REACH. FALL PRECAUTIONS IN PLACE
[2019-11-25 21:58] VITALS: BP 106/40
--- NOTE | 2019-11-26 03:44 | NUR ---
assumed care at approx 1900 evening 11/24. pt lying in bed at change of shift with head of bed elevated sleeping. pt awoke for hs meds and pt voiding per urinal. pt given snack at hs and pt appears to be sleeping soundly with hourly rounding checks. bed alarm on and call light in reach. will continue to monitor.
[2019-11-26 08:00] VITALS: BP 111/56
--- NOTE | 2019-11-26 11:33 | NUR ---
cm faxed updates negative coivd results to [facility], massimo requested to find out if they will be able to accept shirley for skilled rehab rt if not need to send other referral out rt dc 11/30/2019.
--- NOTE | 2019-11-26 18:48 | NUR ---
ASSUMED CARE OF PT AT 0700. PT IS A&OX4 AND VITAL SIGNS ARE STABLE. PT REPORTED PAIN TO LOWER BACK THIS AFTERNOON WHICH WAS MANAGED WITH PO MEDICAITONS. PT PARTICIPATED IN THERAPIES. ACCU CHECKS ACHS. WOUNDS DRESSED PER ORDERS. FALL PRECATIONS IN PLACE AND NURSING WILL CONTINUE TO MONITOR.
[2019-11-26 20:00] VITALS: BP 127/41
--- NOTE | 2019-11-27 04:11 | NUR ---
BLOOD SUGAR OF 84 AT HS, APPLE JUICE AND BISI CRACKER GLADLY TAKEN. USING URINAL, NEAR MIDNIGHT, HE HAD TO GO TO THE BATHROOM FOR A GOOD BM. PLEASANT, TURNING SELF TO SIDE EACH TIME HE WAKES TO USE URINAL EVERY 90 MINUTES TO 2 HOURS. ANTIFUNGAL CREAM TO SMALL REDDENED AREAS ON BUTTOCKS.
[2019-11-27 06:03] LABS: ABSOLUTE NEUTROPHILS 5.8 thou/uL (1.4-8.2); BASOPHILS 0.5 % (0.0-2.0); EOSINOPHILS 1.3 % (0.0-3.0); HEMATOCRIT 25.9 % (42.0-52.0); HEMOGLOBIN 8.4 gm/dL (14.0-18.0); LYMPHOCYTES 16.2 % (24.0-44.0); MCHC 32.6 g/dL (28.0-37.0); MCV 94.9 fL (80.0-100.0); MONOCYTES 8.2 % (1.0-8.0); PLATELET COUNT 274 thou/uL (150-400); POLYS 73.8 % (36.0-66.0); RBC 2.73 mil/uL (4.50-6.00); RDW 16.9 % (10.5-14.5); WBC 7.8 thou/uL (4.0-11.0)
[2019-11-27 06:51] LABS: CALCIUM 8.5 mg/dL (8.5-10.1); CREATININE 2.1 mg/dL (0.7-1.3); MAGNESIUM 1.6 mg/dL (1.8-2.4); POTASSIUM 5.7 mmol/L (3.5-5.1)
[2019-11-27 07:30] VITALS: BP 106/42
[2019-11-27 08:15] VITALS: BP 106/42
--- NOTE | 2019-11-27 12:58 | NUR ---
ASSUMED CARE OF PT AT 0700. PT IS A&OX4. B/P AND PULSE LOW THIS AM, AMIO INITIALLY HELD, PROVIDER NOTIFIED AND INSTRUCTED TO GIVE AMIO DESPITE LOW B/P AND HR. B/P AND PULSE MONITORED BY NURSING STAFF, NO CONCERNS AT THIS TIME. ACCU CHECKS ACHS. SKIN TEAR TO LEFT ELBOW CLEANED AND DRESSING CHANGED PER FUNGAL CREAM APPLIED TO SACRUM PER ORDERS. ELEVATED POTASSIUM ON AM LABS, COMMUNICATED WITH PROVIDER, KAYEXALATE ORDERED AND ADMINISTERED. FALL PRECAUTIONS IN PLACE AND NURSING WILL CONTINUE TO MONITOR.
[2019-11-27 17:26] LABS: CALCIUM 8.4 mg/dL (8.5-10.1); CREATININE 2.2 mg/dL (0.7-1.3); POTASSIUM 5.5 mmol/L (3.5-5.1)
[2019-11-27 18:33] VITALS: BP 119/77
--- NOTE | 2019-11-28 03:15 | NUR ---
LEGS ELEVATED, PATIENT NOTES LEFT HEEL PAIN, SLIGHTLY SPONGY. ENCOURAGED TO CONTINUE LYING ON SIDE TO DECREASE SACRAL REDNESS, ANTIFUNGAL CREAM APPLIED TO BILATER BUTTOCKS. PATIENT USING URINAL WITHOUT BRIEF OVERNIGHT TO ALLOW MORE AIR TO BUTTOCKS AND BRIEFS ARE HARD FOR HIM TO MANAGE WHEN TRYING TO QUICKLY USE URINAL. PLEASANT AND DRINKING WATER WITHOUT ENCOURAGEMENT.
[2019-11-28 06:24] LABS: CALCIUM 8.1 mg/dL (8.5-10.1); CREATININE 2.1 mg/dL (0.7-1.3); POTASSIUM 5.2 mmol/L (3.5-5.1)
[2019-11-28 07:45] VITALS: BP 107/51
--- NOTE | 2019-11-28 13:30 | NUR ---
ASSUMED CARES AT 0700. PT AWAKE, ALERT AND ORIENTED*4 BUT FORGETFUL. DENIES PAIN. VITALS ARE STABLE. ABDOMEN SOFT AND FLAT, PT CONTINUES TO HAVE MULTIPLE STOOLS (SOFT). CONTINUES TO HAVE SACRAL REDNESS, SITE CLEANED AND ANTIFUNGAL CREAM APPLIED. HEELS ELEVATED. PT UP WITH 1 MIN ASSIST, GB AND WALKER AND TOLERATED WELL. Q1H VISUAL CHECKS. CALL LIGHT WITHIN REACH. FALL PRECAUTIONS IN PLACE
--- NOTE | 2019-11-28 17:04 | HC ---
[facility] [place] [address] CONSULTATION Name: HEVER MEADE Room #: 512-P ADM IN M.R.#: [id number] Admission: 11/17/19 Attend Phys: Adrian Walker MD Discharge: Date of : 32 Report #: [id number] THIS REPORT FOR: cc: Janessa Kwon,Janessa Omer,Oscar Cid. PhD ~ CC: Adrian Kwon DATE OF SERVICE: 11/20/2019 NEUROBEHAVIORAL STATUS EXAM ATTENDING PHYSICIAN: Adrian Walker MD ARTIST COLOR SEPARATION: Oscar Buckley, PhD CLINICAL PRESENTATION: The patient is an 89-year-old white male admitted to the rehabilitation unit for a comprehensive inpatient rehabilitation program. The patient has had several recent falls prior to his hospitalization. He was admitted to the hospital with generalized weakness on 11/15/2019. The patient is reported to have right lower extremity pain. He had a CT scan of the head that was negative. The patient was diagnosed with szoxb-lu-[id number] renal failure with his creatinine of 3.4 with a baseline usually of 2.2. His diagnostic assessment on admission to the rehab unit is medical complexity with generalized debilitation, rykmy-kp-iqpozdh renal insufficiency, hyponatremia, COPD, prior automatic implantable cardioverter defibrillator, he has a history of gait instability with multiple falls, hypomagnesemia, protein-calorie malnutrition. A complete description of his medical condition and history can be found in his medical record. Neuropsychological consultation was requested to provide assistance in the assessment of cognitive and emotional status and to provide recommendations and services. Prior to this most recent admission, the patient was living with his son and . He has had several falls, but he does not report having hit his head recently. He discontinued driving about 6 years ago. The patient has 2 children. 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 There is no reported history of treatment for mood or behavior disorder. Prior to this admission, he was not driving and help was needed for managing medication and bills. TECHNIQUES UTILIZED: Clinical interview, review of medical records, staff consultation and behavioral observation, mini mental status exam 2 standard version, clock drawing and verbal fluency assessment (letter and category). [facility] [address] [place] [address] CONSULTATION Name: HEVER MEADE Room #: 512-P [facility] IN .R.#: [id number] Admission: 11/17/19 Attend Phys: Adrian Walker MD Discharge: Date of : 32 Report #: [id number] EXAMINATION FINDINGS: The patient was alert and cooperative with the assessment. He does not present with aphasia. There is no evidence of auditory or visual hallucinations. He describes a mild degree of anxiety as he is worried about the wellbeing of his . He does not report difficulty with sleep, appetite, memory or word finding. His performance on the MMSE 2 brief version is extremely low with a raw score of 10 of 16. He was 3/3 for initial registration, 2/5 for orientation to time, 4/[address] and 1/3 for immediate recall of 3 items after a brief time delay and distraction. Performance on the MMSE 2 standard version was extremely low with a raw score of 17/30. He was 1/5 for serial sevens, 2/2 for naming, 1/1 for repetition, 3/3 for auditory comprehension. The patient was unable to read and follow a written command as he has macular degeneration. He was able to identify certain objects. The patient could not write a sentence. He also was unable to copy a simple geometric design. His clock drawing was extremely poor with inability to accurately place numbers and set the hands at a specific time. Visual spatial construction is impaired secondary to vision. Verbal fluency shows extremely low functioning for letter fluency with a raw score 6, T score of 27, percentile rank of 1. Category fluency was in the low average range with a raw score of 22 and percentile rank of 16. Overall, total fluency was in the borderline range with a raw score of 28, T score of 30, percentile rank of 2. The patient is presenting with impairment in immediate recall, attention/concentration and visual spatial construction and perceptual reasoning. Verbal fluency deficits suggest a moderate impairment in thought organization associated. This type of presentation can suggest a neurodegenerative disorder. DIAGNOSTIC IMPRESSION: Major neurocognitive disorder (dementia) -- without behavior disorder -- extent to be determined, likely toward the mild to moderate range. Anxiety disorder. RECOMMENDATIONS: The patient will require continued assistance in the management of medication, finances and nutrition. Supervision will be necessary for him to maintain safety and avoid further falls. A familiar environment will be of benefit to his overall adjustment. Frequent orientation along with repetition of directions will be necessary. [address] [address] CONSULTATION Name: HEVER MEADE Room #: 512-P [facility] IN Jm.R.#: [id number] Admission: 11/17/19 Attend Phys: Adrian Walker MD Discharge: Date of : 32 Report #: [id number] Thank you very much for allowing me to provide the consultation on this patient. <ELECTRONICALLY SIGNED> By: Oscar Buckley, PhD 11/28/19 1704 [id number] 1801 Oscar Buckley, PhD /nt
[2019-11-28 20:17] VITALS: BP 126/42
--- NOTE | 2019-11-29 02:31 | NUR ---
assumed care at approx 1900 evening 11/27. pt sitting up in recliner at change of shift alert and oriented x4 yet forgetful. pt assisted to bathroom to have bm before hs. pt voiding per urinal. pt took hs meds with water tolerating well. pt appears to be sleeping soundly with hourly rounding checks. bed alarm on and call light in reach.will continue to monitor.
[2019-11-29 07:19] VITALS: BP 131/51
--- NOTE | 2019-11-29 09:22 | NUR ---
LATE ENTRY: ON 11/18/2019, Pt MISSED PHYSICAL THERAPY MINUTES D/T FATIGUE. UNABLE TO TOLERATE 90 MIN PT THIS DATE
--- NOTE | 2019-11-29 13:07 | NUR ---
cm team to send updates to cp and see if they going to take him for skilled. cm called cp admission " just got out of meeting so i will have to let you know"/panchito. cm expressed the importance that if not need to know in order to find another skilled facility by tomorrow. will cont following as needed for dc needs.
--- NOTE | 2019-11-29 14:12 | NUR ---
ASSUMED CARES AT 0700. PT AWAKE, ALERT AND ORIENTED*4. C/O LOW BACK PAIN, TYLENOL AND DICLOFENAC CREAM ADMINISTERED NEEDED. VITALS REMAIN STABLE. SACRAL AREA REDNESS IMPROVED, ANTIFUNGAL CREAM APPLIED AFTER BATH THIS AM. SKIN TEAR ON LEFT ELBOW CLEANED AND DRESSING CHANGED. PT CONTINUES TO HAVE BRUISING ON BUE. PT UP WITH 1 MIN ASSIST, GB AND WALKER AND TOLERATED WELL. Q1H VISUAL CHECKS. CALL LIGHT WITHIN REACH. FALL PRECAUTIONS IN PLACE
--- NOTE | 2019-11-29 16:02 | NUR ---
FAXED REFERRAL TO [facility] SPOKE WITH CLIFF IN INTAKE THEY CAN ACCEPT PT AT DISCHARGE.
[2019-11-29 16:03] VITALS: BP 126/55
[2019-11-29 19:00] VITALS: BP 123/35; BP 98/49
--- NOTE | 2019-11-30 00:58 | NUR ---
PT ALERT AND ORIENTED X 4. AMB TO BR WITH WALKER AND ASSIST X 1 WITHOUT DIFFICULTY. DRESSING TO LEFT ELBOW C/D/I. VOIDING ADEQUATE AMTS CLEAR LIGHT YELLOW URINE PER URINAL. PT DENIES PAIN OR DISCOMFORT. BED ALARM ON FOR SAFETY. PT APPEARS TO BE SLEEPING ON HOURLY ROUNDS.
[2019-11-30 08:00] VITALS: BP 140/40
--- NOTE | 2019-11-30 10:43 | NUR ---
ASSUMED CARE AT 0700. PATIENT IS ALERT AND ORIENTED X4, BUT FORGETFUL. PATIENT NOWAK'S, JUNIOR ACCOUNTING CLERK ARE EQUAL. LUNGS ARE CLEAR. ABD IS SOFT WITH BSX4. UP IN BED FOR BREAKFAST. PATIENT IS VOIDING AMBE COLORED URINE. UP IN THE W/C FOR P.T. UP WITH WALKER AND ASSIST OF 1 STAFF AND GAIT BELT TO THE W/C. PATIENT HAS OPTIFOAM TO HIS LEFT ELBOW. FALL AND SAFETY PROTOCOLS IN PLACE. C/O PAIN IN HIS BACK. MEDICATED WITH PRN PAIN MED. CONTINUES TO PROGESS SLOWLY TOWARDS D/C GOALS. WILL CONDTINUE TO MONITER.
--- NOTE | 2019-11-30 13:05 | NUR ---
team meeting, recommendation: ashtyn ojeda ( pt, ot, st, nursing and sw). he will need ride home. instead pd 5-6 day per week for 8hrs. pd will assistance with medication and cooking. no driving.
[2019-11-30 19:19] VITALS: BP 147/48
--- NOTE | 2019-12-01 00:27 | NUR ---
PT ALERT AND ORIENTED X 4, FORGETFUL. VOIDING ADEQUATE AMTS CLEAR YELLOW URINE PER URINAL. C/O PAIN IN HIS BACK. TYLENOL GIVEN AT HS. VOLTAREN GEL APPLIED TO BACK ORDERED. DRESSING TO LEFT ELBOW C/D/I. BED ALARM ON FOR SAFETY. PT APPEARS TO BE SLEEPING ON HOURLY ROUNDS.
[2019-12-01 06:30] LABS: ABSOLUTE NEUTROPHILS 5.4 thou/uL (1.4-8.2); BASOPHILS 0.4 % (0.0-2.0); EOSINOPHILS 1.2 % (0.0-3.0); HEMATOCRIT 23.2 % (42.0-52.0); HEMOGLOBIN 7.7 gm/dL (14.0-18.0); LYMPHOCYTES 18.3 % (24.0-44.0); MCV 93.7 fL (80.0-100.0); PLATELET COUNT 248 thou/uL (150-400); POLYS 72.1 % (36.0-66.0); RBC 2.47 mil/uL (4.50-6.00); RDW 16.5 % (10.5-14.5); WBC 7.5 thou/uL (4.0-11.0)
[2019-12-01 06:56] LABS: CALCIUM 7.9 mg/dL (8.5-10.1); CREATININE 2.3 mg/dL (0.7-1.3); MAGNESIUM 1.5 mg/dL (1.8-2.4); POTASSIUM 4.9 mmol/L (3.5-5.1)
[2019-12-01 08:46] VITALS: BP 98/40
--- NOTE | 2019-12-01 11:22 | NUR ---
ASSUMED CARE AT 0700. PATIENT IS ALERT AND ORIENTED X4. PATIENT NOWAK'S, FOREST LANDSCAPE ECOLOGY PROFESSOR ARE EQUAL. LUNGS ARE CLEAR AND DEMINISHED. ABD IS SOFT WITH BSX4. VOIDING YO COLORED URINE. LABS OBTAINED RESULTS TO STOCK HANDLER FLOORPERSON. CONSULT FOR NEPHROLOGY OBTAINED. PATIENT ON FLUID RESTRICTION 1000 CC/24 HRS. URINE. LABS ORDERED. PATIENT WILL THEN START ON SALT TABLETS. UP IN BED FOR BREAKFAST. UP IN THE CHAIR WITH P.T. FALL AND SAFETY PROTOCOLS IN PLACE. C/O PAIN IN HIS LOWER BACK. MEDICATED WITH PRN PAIN MED. CONTINUES TO PROGRESS SLOWLY TOWARDS D/C GAOLS. WILL CONTINUE TO MONITER.
[2019-12-01 19:46] VITALS: BP 123/38
--- NOTE | 2019-12-02 02:30 | NUR ---
TURNED TO SIDE, BED CHANGED TWICE, PATIENT USING URINAL. PAIN IN BACK IS USUAL, COMPLAINING ABOUT INCREASED RIGHT WRIST PAIN EVEN AFTER TYLENOL INCREASED TO [place]CO LAST EVENING AND ICE BAG REFILLED. VOLTAREN GEL TO BACK HELPS, ANTIFUNGAL CREAM LOWER ON BUTTOCKS TO LESSEN BREAKDOWN WHILE PATIENT IS TURNED TO SIDE AND ENCOURAGED TO MOVE SELF WHEN AWAKE TO USE URINAL HE HAS DONE IN THE PAST.
--- NOTE | 2019-12-02 04:00 | NUR ---
COMPLAINS BITTERLY OF LEFT WRIST PAIN. TYLENOL GIVEN AGAIN, VOLTAREN GEL APPLIED, SMALL ICEBAG GIVEN. PLAN TO CHECK URIC ACID LEVEL AND BILATERAL WRIST X-RAYS.
[2019-12-02 06:06] LABS: ABSOLUTE NEUTROPHILS 12.5 thou/uL (1.4-8.2); BASOPHILS 0.3 % (0.0-2.0); EOSINOPHILS 0.2 % (0.0-3.0); HEMATOCRIT 24.1 % (42.0-52.0); HEMOGLOBIN 8.1 gm/dL (14.0-18.0); LYMPHOCYTES 6.7 % (24.0-44.0); MCH 31.1 pg (26.0-34.0); MCHC 33.6 g/dL (28.0-37.0); MCV 92.6 fL (80.0-100.0); MONOCYTES 3.2 % (1.0-8.0); PLATELET COUNT 270 thou/uL (150-400); POLYS 89.6 % (36.0-66.0); RBC 2.61 mil/uL (4.50-6.00); RDW 16.6 % (10.5-14.5)
[2019-12-02 06:53] LABS: ALBUMIN 2.1 g/dL (3.4-5.0); CALCIUM 8.2 mg/dL (8.5-10.1); CREATININE 2.3 mg/dL (0.7-1.3); MAGNESIUM 1.3 mg/dL (1.8-2.4); PHOSPHORUS 4.1 mg/dL (2.5-4.9); POTASSIUM 4.7 mmol/L (3.5-5.1)
[2019-12-02 07:46] VITALS: BP 115/41
[2019-12-02 13:23] LABS: BE(vivo) -3.5 mmol/L (-2 to +3); HCO3 19.7 mmol/L (22.0-26.0); PCO2 28.8 mmHg (35.0-45.0); PO2 70.8 mmHg (80.0-100.0); pH 7.454 (7.360-7.450); sO2 95.2 % (92.0-98.0)
--- NOTE | 2019-12-02 13:35 | NUR ---
09:00 PT IS MORE "TIRED OVERALL' ACCORDING TO PT TODAY. HE IS FLAT AFFECT FOR ME OVERALL AND DIMINISHED RESPIRATORY SOUNDS TODAY. LEFT ARM IS SWOLLEN AND VERY GUARDED BY PT. HE BLAMES IT ON "MY ARTHRITIS", BUT WILL SHARE WITH ORNAMENTAL IRONWORKER MY CONCERNS ON SUCH HE IS VERY PROTECTIVE TO NOT USE IT AT ALL. MEDICATIONS GIVEN AND TOLERATED PO WELL.
--- NOTE | 2019-12-02 16:53 | NUR ---
PT. DOWN FOR ULTRASIUND OF UPPER/LOWER ARMS BILATERALLY PER ORTHO'S 0RDER. TOLERAtED TRANSFER WELL TO WHEELCHAIR AND VOIDED ON TOILET PRIOR TO LEAVING UNIT. HE IS MORE RESPONSIVE THIS AFTERNNON OVERALL. LEFT ARM IS SWOLLEN 3+ LOWER FOREARM AREA, DISCUSSED WITH ORTHO MD.
--- NOTE | 2019-12-02 19:48 | NUR ---
DAUGHTER IN [facility] CALLED ASKING HOW HE WOULD GETA RIDE HOME TOMMOROW UPON DISCHARGE? i EXPLAINED i WILL PASS THIS CONCEPT ONTO OUR TEAM TOMORROW BUT PT. TOLD ME HE WANTS TO BE DISCHARGED TOMORROW. HE HAS A SON THAT LIVES HERE LOCALLY SO NOT SURE WHY HE IS NOT BEING INVOLVED IN TRANSPORTATION HOME ON DISCHARGE?
--- NOTE | 2019-12-03 05:23 | NUR ---
Pt. rested quietly at intervals during the night when checked on during frequent rounds. He has been given po tylenol for c/o back and left for- arm pain (see emar) with some relief noted. Bed alarm is on.
[2019-12-03 05:43] LABS: CALCIUM 7.9 mg/dL (8.5-10.1); CREATININE 2.7 mg/dL (0.7-1.3); PHOSPHORUS 4.8 mg/dL (2.5-4.9); POTASSIUM 5.1 mmol/L (3.5-5.1)
[2019-12-03 08:00] VITALS: BP 107/35
[2019-12-03 08:43] LABS: HEMATOCRIT 23.2 % (42.0-52.0); HEMOGLOBIN 7.4 gm/dL (14.0-18.0); MCH 30.3 pg (26.0-34.0); MCHC 32.1 g/dL (28.0-37.0); MCV 94.4 fL (80.0-100.0); RBC 2.46 mil/uL (4.50-6.00); RDW 17.1 % (10.5-14.5); WBC 14.1 thou/uL (4.0-11.0)
--- NOTE | 2019-12-03 10:06 | H ---
[facility] [place] [address] HISTORY AND PHYSICAL Name: HEVER MEADE Room #: 512-P ADM IN M.R.#: [id number] Admission: 11/17/19 Attend Phys: Adrian Walker MD Discharge: Date of : 32 Report #: [id number] THIS REPORT FOR: cc: Janessa Kwon,Janessa Navas,Adrian Jolly MD ~ CC: Adrian Kwon DATE OF SERVICE: 11/17/2019 HISTORY AND PHYSICAL/POSTADMISSION PHYSICIAN EVALUATION HISTORY OF PRESENT ILLNESS: The patient is an 89-year-old white male admitted for rehabilitation. The patient was having increased falls over the last several days. Noted to have generalized weakness, who was originally admitted to [facility] on 11/15/2019. He has some right lower extremity pain with right knee x-ray negative. CT of the head was negative. He was diagnosed with bldcx-ns-vjrvoux renal failure. His creatinine up to 3.4 with a baseline usually at 2.2. He also had significant hyponatremia with a sodium down to 127. He was given hypertonic saline and his creatinine has improved along with his sodium level. He is quite weak and has been admitted for acute in-hospital inpatient rehabilitation. As far as prior medical history, allergies, and social history: Please see the history and physical documentation as well as my consult dictation from yesterday. MEDICATIONS: Please see the MAR. ALLERGIES: No known drug allergies. REVIEW OF SYSTEMS: No complaints of chest pain, shortness of breath or abdominal discomfort. PHYSICAL EXAMINATION: GENERAL: The patient was seen earlier, was in no distress. VITAL SIGNS: Temperature 36.7, pulse 69, respirations 20, blood pressure 126/55. HEENT: Facies were symmetric. Follows 1 step commands without difficulty. CHEST: Sounded clear to auscultation. CARDIOVASCULAR: Regular rate and rhythm. ABDOMEN: Bowel sounds positive, nontender. GENITOURINARY AND RECTAL: Deferred. EXTREMITIES: Functional range of motion of both upper extremities with strength [facility] [address] [place] [address] HISTORY AND PHYSICAL Name: HEVER MEADE Room #: 512-P [facility] IN M.R.#: [id number] Admission: 11/17/19 Attend Phys: Adrian Walker MD Discharge: Date of : 32 Report #: [id number] grade 4-/5. DTRs are trace to 1. Lower extremity, some scattered bruises over the lower extremities without erythema or focal knee swelling. He has reasonable range of motion and does have some venous stasis type changes. He has been sit to stand with mod assist. He tends to fatigue quickly. ASSESSMENT: This is an 89-year-old white male with the following problem list: 1. Medical complexity with generalized debilitation. 2. Acute on chronic renal insufficiency. 3. Hyponatremia. 4. Chronic obstructive pulmonary disease. 5. Prior automatic implantable cardioverter defibrillator. 6. History of gait instability with multiple falls. 7. Hypomagnesemia. 8. Moderate protein-calorie malnutrition. PLAN: The patient has been admitted for acute in-hospital inpatient rehabilitation. From a postadmission physician evaluation perspective, there are no relevant changes since the preadmission screening. Please see the above review of prior and current medical and functional conditions and comorbidities. Please see the patient's previous and current functional status. As far as risk of complications, the patient has multiple medical comorbidities as noted above. Initial plan of care involves the interdisciplinary acute inpatient rehabilitation program. Measurable functional goals would be for the patient to become modified independent with transfers, mobility, ADLs, so he can hopefully return back to his prior living situation. Prognosis is reasonably good. Estimated length of stay probably at least 7-14 days. Potential barriers would include his multiple medical comorbidities and decreased functional status. The patient meets diagnostic criteria for an acute in-hospital inpatient rehabilitation stay. He meets the medical necessity criteria. We will have the medical device sales consultant physicians continue to follow. He does have the tolerance for therapies and has appropriate discharge goals back to the home setting. <ELECTRONICALLY SIGNED> By: Adrian Walker MD 12/03/19 1006 1038 1142 Adrian Walker MD /[facility]
--- NOTE | 2019-12-03 10:06 | PLAN ---
[facility] [place] [address] REHAB UNIT PLAN OF CARE Name: HEVER MEADE Room #: 512-P ADM IN M.R.#: [id number] Admission: 11/17/19 Attend Phys: Adrian Walker MD Discharge: Date of : 32 Report #: [id number] THIS REPORT FOR: //name// CC: Adrian Kwon DATE OF SERVICE: 11/19/2019 PROGRESS NOTE AND OVERALL PLAN OF CARE SUBJECTIVE: The patient was seen back in followup. He was in no distress, afebrile. Vital signs are stable. He has been working in therapies with sit to stand, mod assist. He is able to ambulate 50 feet mod assist with a front-wheeled walker. He is max assist for upper and lower body dressing. He does have some decreased insight, which is premorbid. ASSESSMENT: 1. Medical complexity with generalized debilitation. 2. Acute on chronic kidney disease. 3. Hyponatremia with hypomagnesemia. 4. Chronic obstructive pulmonary disease. 5. History of an automatic implantable cardioverter defibrillator with atrial fibrillation and history of myocardial infarction. 6. Moderate protein-calorie malnutrition. 7. Degenerative arthritis. PLAN: The overall plan of care is based on the preadmission screen, post-admission physician evaluation and information garnered from therapy assessments. 1. Estimated length of stay is probably at least 7-14 days. 2. Medical prognosis is reasonably good. 3. Anticipated interventions includes the interdisciplinary acute inpatient rehabilitation program. 4. Anticipated functional outcomes would be for the patient to become modified independent at least at a walker level, so he can return back home with family. Also to maximize independence with mobility and ADLs as well as improvement in cognition. 5. Discharge destination would be back home with family. 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 The son is noted to be disabled. The is currently staying with her daughter in [place], [place]. 6. Expected therapy by discipline includes PT, OT and speech 1 hour per day each five days a week throughout the duration of the acute inpatient rehabilitation stay. <ELECTRONICALLY SIGNED> By: Adrian Walker MD 12/03/19 1006 [id number] 1415 Adrian Walker MD /nt
--- NOTE | 2019-12-03 10:58 | NUR ---
[facility] FA[facility]ED [facility] UPDATE TO [facility] NOTIFIED GILBERT IN ADM PT TO DC TOMORROW. PLEASE FAX DC ORDERS/SUMMARY TO [phone] AND CALL [phone] TO NOTIFY [facility] OF DC.
--- NOTE | 2019-12-03 13:33 | NUR ---
cm notified by bedside nurse that daughter sendy called and stated " coming in town so i will pick up driver dad tomorrow, he will not need any transportation home on 12/04/2019. bedside nurse to fax dc orders to [phone].
--- NOTE | 2019-12-03 21:27 | NUR ---
ASSUMED CARE OF PT AT 0700. PT IS A&OX4, BLOOD PRESSURE DECREASED THIS AM, PROVIDER AWARE. D/C TODAY CANCELLED, FAMILY NOTIFIED OF CHANGE, PLANT TO D/C TOMORROW. EDEMA TO BUE NOTED AND ELEVATED WHEN AT REST. PT CALLS APPROPRIATELY FOR ASSISTANCE. FALL PRECAUTIONS IN PLACE AND NURSING WILL CONTINUE TO MONITOR.
[2019-12-03 22:06] VITALS: BP 119/48
[2019-12-03 22:44] VITALS: BP 119/48
--- NOTE | 2019-12-04 03:53 | NUR ---
Assumed care on 12/03/19 @ 19:15, in bed awake alert and oriented x 3, noted to be forgetful. Cooperates with assessment, HRRR, Lungs auscultated to present course breath sounds just after finishing breathing TX. ABD N x 4 Q. VS 119/48 66 18 95% 97.5F Bed in low position, bed alarm set for safety. Urine output noted to be light yellow, pt uses urinal. Spilled urinal once. Upper extremities are edemetous and dark skin noted bilat. Provided Tylenol 650 @ 21:59 for back pain of 5/10. Upon Follow up assessment, noted to be sleeping. Vanco 125 provided @ 0000 as well as Voltarin gel to the lower back and arms. Will continue to monitor as per protocol for safety and comfort.
[2019-12-04 06:05] LABS: ALBUMIN 2.1 g/dL (3.4-5.0); CALCIUM 8.2 mg/dL (8.5-10.1); CREATININE 2.6 mg/dL (0.7-1.3); PHOSPHORUS 4.6 mg/dL (2.5-4.9); POTASSIUM 5.4 mmol/L (3.5-5.1)
--- NOTE | 2019-12-04 06:49 | NUR ---
REQUESTED TYLENOL FOR PAIN OF 5/10 LOWER BACK. PROVIDED TYLENOL 650 @ 06:30.
[2019-12-04 08:32] VITALS: BP 123/49
[2019-12-04] MEDS ORDERED: AZITHROMYCIN 2250 MG PO (10:22)
[2019-12-04] MEDS ORDERED: PROBIOTIC1 EAC1 PO (10:22)
[2019-12-04] MEDS ORDERED: DEMADEX20 MG PO (10:22)
[2019-12-04] MEDS ORDERED: PROTONIX 20 MG20 MG PO (10:22)
[2019-12-04] MEDS ORDERED: PREDNISONE 10 M10 M1 PO (10:23)
[2019-12-04 11:24] VITALS: BP 126/55
--- NOTE | 2019-12-04 15:06 | NUR ---
ASSUMED CARE OF PT AT 0700. PT IS A&OX4. DISCHARGE PLANNED FOR TODAY. PT TACHYPNEIC WITH RESP RATE OF 28 WITH O2 SAT OF 96%, LUNG SOUNDS COARSE BILATERALLY, INCREASED WORK OF BREATHING NOTED, EDEMA NOTED TO BACK, ELBOWS AND PERIORBITAL AREA. PT DENIED PAIN OR SOB. TEMPERATURE WNL. PROVIDER NOTIFIED ABOUT PLAN FOR DISCHARGE AND ASSESSMENT FINDINGS. PROVIDER OKAY WITH DISCHARGE. DR. RADER CONTACTED AND DISCHARGE ORDERS ENTERED. DAUGHTER CALLED AND INFORMED ABOUT DISCHARGE. REVIEWED DISCHARGE WITH PT AND DAUGHTER. SCRIPTS FOR DISCHARGE MEDICATIONS GIVEN TO DAUGHTER IN D/C PACKET. D/C EDUCATION REVIEWED WELL F/U APPOINTMENTS. DAUGHTER AND PT DENIED ANY QUESTIONS AT THAT TIME. ASSISTED PT AND DAUGHTER TO ED FOR DISCHARGE. BELONGINGS REMOVED FROM ROOM. PT TRANSFERED TO PRIVATE CAR WITH TOUCH ASSISTANCE.
--- NOTE | 2019-12-06 07:35 | HC ---
[facility] [place] [address] CONSULTATION Name: HEVER MEADE Room #: 512-P [facility] IN M.R.#: [id number] Admission: 11/17/19 Attend Phys: Adrian Walker MD Discharge: 12/04/19 Date of : 32 Report #: [id number] THIS REPORT FOR: cc: Janessa Kwon,Jasmyn Walsh MD ~ CC: Adrian Kwon DATE OF SERVICE: 11/23/2019 REASON FOR THE CONSULTATION: Elevated creatinine. REASON FOR THE PRESENTATION: Repeated falls. HISTORY OF PRESENT ILLNESS: This is an 89-year-old with extensive past medical history including and not limited to chronic kidney disease. He sees a smoking pipe liner at and was told that he has stage 4 chronic kidney disease. He presented with repeated falls and was admitted to further evaluate. It looks like that the patient has extensive past medical history and was initially admitted to the acute inpatient hospital on 11/15/2019. He carries a diagnosis of COPD. He is status post AICD. He also has history of AFib. He is maintained on numerous medications including Plaquenil for unclear reasons to me. Amongst his outpatient medications are furosemide and spironolactone. He does not really know the details of his chronic kidney disease, but as I stated, he sees Dr. Patton at and was told that he has chronic kidney disease, but nothing to worry about. On arrival, the patient was found to have a creatinine of 3.4. He was found to be clinically dehydrated and was initiated on IV fluid. With rehydration, his creatinine has gone down to 2.4. PAST MEDICAL HISTORY: Extensive and includes the followin. COPD. 2. Heart failure. 3. Status post pacemaker. 4. Asthma. 5. Hypothyroidism. 6. AFib. 7. Coronary artery disease. MEDICATIONS: 1. Hydroxychloroquine for unclear reasons. 2. Amiodarone. 3. Atorvastatin. 4. Pradaxa. 5. Furosemide. 6. Spironolactone. [facility] [address] [place] [address] CONSULTATION Name: HEVER MEADE Room #: 512-P [facility].#: [id number] Admission: 11/17/19 Attend Phys: Adrian Walker MD Discharge: 12/04/19 Date of : 32 Report #: [id number] ALLERGIES: None. SOCIAL HISTORY: He continues to smoke. No drug or alcohol abuse. REVIEW OF SYSTEMS: GENERAL: Significant for weakness and lethargy. CARDIOVASCULAR: No chest pain or palpitation. PULMONARY: No cough or hemoptysis. GASTROINTESTINAL: No nausea or vomiting. GENITOURINARY: No frequency, no urgency. MUSCULOSKELETAL: As per the history of present illness. NEUROLOGICAL: Recurrent falls. PHYSICAL EXAMINATION: VITAL SIGNS: Blood pressure is 105/45. Pulse rate is 72, respiratory rate is 20, temperature 36.4. HEAD AND NECK: No jugular venous distention. He appears frail. CARDIOVASCULAR: No rub detected. CHEST: No crackles. ABDOMEN: Soft, nontender. EXTREMITIES: Lower extremities, no edema. LABORATORY VALUES: Revealed hemoglobin of 7.6, down from 8.9. White blood cell count is 12.1 down from 16.8. Sodium is 129, potassium is 5, carbon dioxide is 18, BUN is 43, creatinine is 2.4, which seems to be his baseline. Magnesium is 1.7. Cultures are negative. Chest x-ray with no acute process. ASSESSMENT, IMPRESSION: 1. Acute kidney injury due to over diuresis. 2. Hyponatremia. 3. Hyperkalemia. 4. Chronic kidney disease. PLAN: 1. The patient's baseline creatinine seems to be around 2.5. He sees somebody at with the last name of Abdi for his chronic kidney disease. He does not have any evidence of fluid overload and his blood pressure is on the low side. Continue with the IV fluid at a low rate for today. His sodium, his creatinine seems to be improving and back to his baseline. 2. Discontinue diuretics. 3. Polypharmacy needs to be minimized. 4. It is not clear to me why the patient is maintained on hydroxychloroquine [address] [address] CONSULTATION Name: HEVER MEADE Room #: 512-P DIS IN M.R.#: [id number] Admission: 11/17/19 Attend Phys: dArian Walker MD Discharge: 12/04/19 Date of : 32 Report #: [id number] with his cardiac history. This will have to be carefully reviewed. 5. We will continue to follow during his hospital stay. <ELECTRONICALLY SIGNED> By: Jasmyn Owens MD 12/06/19 0735 0935 1122 Jasmyn Owens MD /nt
--- NOTE | 2019-12-06 16:11 | NUR ---
PT DISCHARGED SUNDAY 12/03 TO HOME WITH [facility] FAXED DC ORDERS TO SPOKE WITH CLIFF IN INTAKE SHE RECEIVED ORDERS AND THEY WILL SEE PT TOMORROW.
--- NOTE | 2019-12-06 16:45 | HC ---
[facility] [place] [address] CONSULTATION Name: HEVER MEADE Room #: 512-P [facility] IN M.R.#: [id number] Admission: 11/17/19 Attend Phys: Adrian Walker MD Discharge: 12/04/19 Date of : 32 Report #: [id number] THIS REPORT FOR: cc: Janessa Kwon,Linda Danielle MD ~ CC: Adrian Kwon DATE OF SERVICE: 12/02/2019 REASON FOR CONSULTATION: Left forearm swelling and wrist cysts. HISTORY OF PRESENT ILLNESS: The patient is an 89-year-old male who was admitted to the rehab unit, having increased falls over the last few days, generalized weakness. He was originally admitted to [facility] on 11/15/2019 and then transferred to the rehabilitation unit. He was diagnosed with hyfqg-hy-wxpchtm renal failure. He had significant debility. The history and physical exam is significantly limited due to the patient's mental status. He does not interact well. He does answer few questions, does cooperate minimally with the physical examination. A large portion of the history is obtained from the patient's medical record. Per nursing, the concern is regarding the patient's left upper extremity swelling. There are no significant new complaints of pain. There is no new injury. PAST MEDICAL HISTORY: Significant for kidney disease, hyponatremia, chronic obstructive pulmonary disease, coronary artery disease, atrial fibrillation, protein-calorie malnutrition, degenerative arthritis. ALLERGIES: No known drug allergies. MEDICATIONS: The MAR was reviewed and includes vancomycin, acetaminophen, hydroxychloroquine, aspirin, amiodarone, levothyroxine, Pradaxa, cholecalciferol, atorvastatin, diclofenac, alprazolam, albuterol. PAST SURGICAL HISTORY: Unable to be obtained. SOCIAL HISTORY: Unable to be obtained. Apparently is a minimal ambulator due to debility. REVIEW OF SYSTEMS: MUSCULOSKELETAL: Denies pain in his upper extremities. NEUROLOGIC: He denies any numbness in his fingertips. LABORATORY STUDIES: Done on 12/02/2019 shows a white blood cell count 14, hemoglobin 8.1, hematocrit 24.1, platelet count 270. Chemistry shows a low [address] [address] CONSULTATION Name: HEVER MEADE Room #: 512-P [facility] IN .R.#: [id number] Admission: 11/17/19 Attend Phys: Adrian Walker MD Discharge: 12/04/19 Date of : 32 Report #: [id number] sodium at 123, creatinine is elevated at 2.3. Serum uric acid level is 6.1 and normal. Magnesium and calcium both are low. Albumin is low at 2.1. COVID test is negative. PHYSICAL EXAMINATION: GENERAL: The patient is awake, alert initially upon my examination, then he is sleepy and unable to cooperate with the remainder of the examination. He is a well-developed, well-nourished male in no acute distress. VITAL SIGNS: Most recent vital signs show temperature of 36.2, heart rate 66, respiratory rate is 18, blood pressure 115/41, pulse oximetry is 93% on room air. EXTREMITIES: Right upper extremity exam, he has some diffuse age-related ecchymosis, discoloration of the dorsal aspect of his hand. He has a 2+ radial pulse. He wiggles his fingers. Gross sensory and stability is intact. Gross stability is intact. Gross strength is intact. He has no tenderness to palpation throughout the right upper extremity. No pain with range of motion of the right elbow, forearm, wrist or hand. Left upper extremity exam, there was slight increased edema in the entire left upper extremity compared to the right. He has 2+ radial pulse. There is diffuse dorsal purplish discoloration to the hand similar as to the right. There is a light renan discoloration to the volar forearm, not consistent with erythema. There is a partial thickness wound on the lateral side of his elbow with no signs of infection. Grossly sensation and stability is intact. He has a moderate amount of weakness that is diffuse. He moves his fingers, but not well. Grossly his tendons are intact. He has no pain with gentle range of motion of the elbow, wrist, forearm and hand. He is able to move these joints without pain. He has 2+ radial pulse. 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 IMPRESSION AND PLAN: Left upper extremity edema without focal signs of an abscess or cellulitis. The patient is not showing any signs of tenderness or discomfort. X-rays show some diffuse arthrosis, but his physical exam findings are not consistent with these areas being symptomatic. The patient may have a left upper extremity DVT. I will order an ultrasound. Thank you very much for allowing me to participate in the care of this patient. <ELECTRONICALLY SIGNED> By: Linda Shelton MD 12/06/19 1645 1525 21 Linda Shelton MD /nt
== END 2019-12-04 12:45 | disposition home health service (06) | DRG 947 ==
PROVIDERS: Hospitalist; Internal Medicine; Internal Medicine Nephrology; Nurse Practitioner; Nurse Practitioner Family; Specialist; ADMIT Physical Medicine & Rehabilitation; ATTEND Physical Medicine & Rehabilitation
DX: R53.81 Other malaise (principal); E43 Unspecified severe protein-calorie malnutrition; N17.9 Acute kidney failure, unspecified; E87.1 Hypo-osmolality and hyponatremia; F01.51 Vascular dementia, unspecified severity, with behavioral disturbance; N18.9 Chronic kidney disease, unspecified; J44.9 Chronic obstructive pulmonary disease, unspecified; E83.42 Hypomagnesemia; I48.91 Unspecified atrial fibrillation; M19.90 Unspecified osteoarthritis, unspecified site; T50.2X5A Adverse effect of carbonic-anhydrase inhibitors, benzothiadiazides and other diuretics, initial encounter; E87.5 Hyperkalemia; M06.9 Rheumatoid arthritis, unspecified; E86.0 Dehydration; D72.829 Elevated white blood cell count, unspecified; I25.10 Atherosclerotic heart disease of native coronary artery without angina pectoris; E03.9 Hypothyroidism, unspecified; E78.5 Hyperlipidemia, unspecified; D63.8 Anemia in other chronic diseases classified elsewhere; I25.2 Old myocardial infarction; Z95.810 Presence of automatic (implantable) cardiac defibrillator; Z68.23 Body mass index [BMI] 23.0-23.9, adult; Y92.89 Other specified places as the place of occurrence of the external cause; Z79.01 Long term (current) use of anticoagulants; Z03.818 Encounter for observation for suspected exposure to other biological agents ruled out
CPT/HCPCS: 10112

== ENCOUNTER 2020-01-18 10:45 | Inpatient (IN) | payer OTHER, MEDICARE ==
[~2020-01-18] VITALS: Ht 170.2 cm; Wt 72.1 kg
--- NOTE | ~2020-01-18 | EMS ---
[address] [address] EMS Patient Care Report Name: HEVER MEADE Room #: REG MILAD Smith#: [id number] Admission: 01/18/20 Attend Phys: Discharge: Date of : 34 Report #: [id number] THIS REPORT FOR: //name// Report Transmitted: 01/18/2020 11:51 EMS Care Summary [place], [place]/[facility] Incident [id number] @ 01/18/2020 10:14 Incident Location [address] [place] [address] Patient HEVER MEADE Male, 89 Years 1930 Patient Address [address] [place] [address] Patient History Chronic Obstructive Pulmonary Disease (COPD),Pacemaker/AICD,Hyperlipidemia,Cardiac Condition - Other, Patient Allergies No known allergies, Patient Medications Atorvastatin, Spironolactone, Amiodarone, Furosemide, Prednisone, Chief Complaint CHEST PAIN Disposition Transported No Lights/[place] Dispatch Reason Chest Pain (Non-Traumatic) Transported To [facility] Narrative UPON ARRIVAL PT SUPINE IN BED CONSCIOUS AND ALERT. PT HAS BEEN HAVING INCREASED CHEST PAIN SINCE LAST NIGHT, WORSE THIS MORNING. PT ALSO HAVONG SOB/ WEAKNESS THAT GETS WORSE WHEN MOVING AROUND THE HOUSE. PT ALSO HAS L ARM NUMBNESS. PT [facility] [address] [place] [address] EMS Patient Care Report Name: HEVER MEADE Room #: REG MILAD Smith#: [id number] Admission: 01/18/20 Attend Phys: Discharge: Date of : 34 Report #: [id number] [facility]. Initial Vitals @10:28P: 76,BP: 145/60,CO: 6,SpO2: 95, @10:41P: 78,R: 20,BP: 82/33,GCS: 15,SpO2: 97,Revised Trauma: 11, @10:20P: 72,R: 20,BP: 135/47,Pain: 5/10,GCS: 15,SpO2: 97,Revised Trauma: 12,NE Suspected: false Assessments @10:20MENTAL:Person Oriented,Time Oriented,Event Oriented,Place Oriented,SKIN:HEENT:Head/Face: No Abnormalities,LUNG SOUNDS:General: No Abnormalities,ABDOMEN:General: No Abnormalities,PELVIS//GI:EXTREMITIES:Left Arm: No Abnormalities,Right Arm: No Abnormalities,Left Leg: No Abnormalities,Right Leg: No Abnormalities,PULSE:Radial: 2+ Normal,NEURO:No Abnormalities, Impression Chest Pain / Discomfort Procedures @10:30Nitrostat - 0.4 Milligrams (mg) - SublingualResponse: Unchanged@10:2212-Lead ECGResponse: UnchangedSucceeded@10:28Saline Lock 10cc (18 ga) Site: Antecubital-LeftResponse: UnchangedSucceeded@10:28Aspirin - 324 Milligrams (mg) - OralResponse: Unchanged@10:20ALS AssessmentResponse: UnchangedSucceeded Timeline 10:12,Call Received 10:12,Dispatch Notified 10:14,Dispatched 10:15,En Route 10:18,On Scene 10:19,At Patient 10:20,BP: 135/47 M,PULSE: 72,RR: 20 R,SPO2: 97 Ox,ETCO2: ,BG: ,PAIN: 5,GCS: 15, 10:20,ALS Assessment,Response: UnchangedSucceeded, 10:22,12-Lead ECG,Response: UnchangedSucceeded, 10:28,Saline Lock 10cc 18 ga Site: Antecubital-Left,Response: UnchangedSucceeded, 10:28,BP: 145/60 M,PULSE: 76,RR: R,SPO2: 95 Ox,ETCO2: ,BG: ,PAIN: ,GCS: , 10:28,Aspirin - 324 Milligrams (mg) - Oral,Response: Unchanged 10:30,Nitrostat - 0.4 Milligrams (mg) - Sublingual,Response: Unchanged 10:31,Depart Scene 10:41,At Destination 10:41,BP: 82/33 M,PULSE: 78,RR: 20 R,SPO2: 97 Ox,ETCO2: ,BG: ,PAIN: ,GCS: 15, 10:56,Call Closed [facility] [address] [place] [address] EMS Patient Care Report Name: HEVER MEADE Modesta Room #: REG [facility].#: [id number] Admission: 01/18/20 Attend Phys: Discharge: Date of : 34 Report #: [id number] Disclaimer v1.1 Copyright 2020 [employer] This EMS Care Summary contains data elements from the applicable legal record (which may be displayed differently). It is designed to provide pertinent information for the following purposes: continuity of care, clinical quality, and state data reporting. The complete legal record is available to ED staff and administrators of the receiving hospital in [employer]'s Patient Tracker. All data is provided "as is."
[~2020-01-18 10:45] MED LIST changes: +AZITHROMYCIN 2250 MG PO; +DEMADEX20 MG PO; +PREDNISONE 10 M10 M1 PO; +PROBIOTIC1 EAC1 PO; +PROTONIX 20 MG20 MG PO
[2020-01-18 10:46] VITALS: BP 97/38
[2020-01-18 11:19] LABS: WBC 14.4 thou/uL (4.0-11.0)
[2020-01-18 11:20] LABS: MCH 29.1 pg (26.0-34.0); MCHC 31.3 g/dL (28.0-37.0); RBC 2.14 mil/uL (4.50-6.00); RDW 18.8 % (10.5-14.5)
[2020-01-18 11:23] LABS: ANION GAP 14 mmol/L (7-16); BUN 45 mg/dL (7-18); CHLORIDE 102 mmol/L (98-107); CO2 21 mmol/L (21-32); CREATININE 2.3 mg/dL (0.7-1.3); GLUCOSE 108 mg/dL (74-106); POTASSIUM 4.6 mmol/L (3.5-5.1); SODIUM 137 mmol/L (136-145)
[2020-01-18 11:30] LABS: HEMATOCRIT 19.9 % (42.0-52.0); HEMOGLOBIN 6.2 gm/dL (14.0-18.0)
[2020-01-18 11:33] LABS: SGOT 31 U/L (15-37); SGPT 23 U/L (30-65); TOTAL BILIRUBIN 0.6 mg/dL (0.2-1.0); TOTAL PROTEIN 5.9 g/dL (6.4-8.2); TROPONIN-I <0.06 ng/mL (<0.06)
--- NOTE | 2020-01-18 12:22 | EKG ---
[facility] [place] [address] ELECTROCARDIOGRAM REPORT Name: HEVER MEADE Room #: REG [facility]#: [id number] Admission: 01/18/20 Attend Phys: Discharge: Date of : 32 Report #: [id number] THIS REPORT FOR: cc: Janessa Kwon Diane C. DO Santiago, Patrick MD [facility] ~ THIS REPORT FOR: //name// [facility] ED Test Date: 2020-01-18 Test Time: 10:51:21 Pat Name: HEVER MEADE Department: Room: Gender: Computer Tester: [facility] : 1930 Requested By: Mickey Dean Order Number: [id number] MD: Angel Sloan Measurements Intervals [place] Rate: 70 P: -6 [place]: 177 QRS: 28 QRSD: 153 T: 14 QT: 528 QTc: 570 Interpretive Statements Sinus rhythm Atrial premature complexes in couplets Right bundle branch block Compared to ECG 11/15/2019 12:19:52 Atrial premature complex(es) now present Electronically Signed On 01-18-2020 12:21:56 CDT by Angel Sloan [email or web address] <ELECTRONICALLY SIGNED> By: Angel Sloan MD, FAC 01/18/20 1221 1051 1051 Angel Sloan MD, [facility] /EPI
[2020-01-18] MEDS ORDERED: PROTONIX 20 MG20 MG PO (14:20)
[2020-01-18 14:24] VITALS: BP 118/38
--- NOTE | 2020-01-18 14:26 | NUR ---
1ST ATTEMPT TO CALL FOR INPATIENT REPORT, NURSE OUT OF UNIT FOR PT CARE AT THE MOMENT, WILL RETURN CALL YUMIKO
[2020-01-18 14:41] LABS: % SATURATION 6 % (20-39); IRON 8 ug/dL (65-175); TIBC 145 ug/dL (250-450)
[2020-01-18 14:44] VITALS: BP 120/47
[2020-01-18 14:48] LABS: ABSOLUTE RETIC COUNT 0.0236 10^6/uL; OBSERVED RETIC COUNT 1.07 % (0.6-2.6)
--- NOTE | 2020-01-18 15:11 | NUR ---
ATTEMPTED TO CALL FIELD MACHINIST REGARDING PT SYMPTOMS & NEG COVID. UNABLE TO GET AHOLD OF INFCTION CONTROL. PER DR. SPRAGUE, PT NEEDS TO GO TO 3W R/T POSITIVES FEVERS, & PT REPORTED SOB.
[2020-01-18 15:49] VITALS: BP 116/45; BP 120/52; BP 122/98; BP 126/46
--- NOTE | 2020-01-18 18:18 | NUR ---
PATIENT ADMIT TO UNIT AT 1700 FROM ER WITH BLOOD TRANSFUTION GOING. VSS. AFEBRILE. A/O X4. DEMIES PAIN. NO N/V. COVID NEGATIVE. NPO AFTER MIDNIGHT TO HAVE EGD IN AM. NO BLEEDING NOTED. WILL KEEP MONITOR.
[2020-01-18 20:03] VITALS: BP 144/49
[2020-01-18 21:52] LABS: HEMATOCRIT 23.5 % (42.0-52.0); HEMOGLOBIN 7.9 gm/dL (14.0-18.0)
[2020-01-18 23:58] VITALS: BP 155/48
[2020-01-19] VITALS (7 sets, daily range): BP systolic 96–132; BP diastolic 36–55
[2020-01-19 06:36] LABS: HEMATOCRIT 25.6 % (42.0-52.0); HEMOGLOBIN 8.4 gm/dL (14.0-18.0); MCH 30.3 pg (26.0-34.0); MCHC 32.7 g/dL (28.0-37.0); MCV 92.9 fL (80.0-100.0); RBC 2.75 mil/uL (4.50-6.00); RDW 17.7 % (10.5-14.5); WBC 9.9 thou/uL (4.0-11.0)
--- NOTE | 2020-01-19 06:41 | NUR ---
PT HAD COMPLAINTS OF UPPER CHEST AND BACK PAIN. RECEIVED ORDERS FOR IV PAIN MEDICATION, GAVE 2X OVER SHIFT WITH GOOD RESULTS FOR PAIN RELIEF. PT VOIDS VIA URINAL. VSS, NO N/V, TELE SHOWS SA WITH A BBB.
--- NOTE | 2020-01-19 11:10 | NUR ---
ASSUMED PATIENT CARE THIS AM AT APPROXIMATELY 0700. PATIENT AWAKE ALERT ORIENTED TO SITATION, AWARE THAT HE IS TO HAVE A EGD THIS AM AT APPROXIMATELY 0800. PATIENT DENIES ANY PAIN/ NAUSEA/ VOMITING. RESPIRATIONS EVEN/ UNLABORED. O2 SAT STABLE ON ROOM AIR. DENIES ANY NEEDS AT THIS TIME. IV TO LEFT AC REMOVED SINCE IT WAS A FIELD STICK. TOLERATED WELL. WANTING TO ADVACE HIS DIET FROM FULL LIQUID. CALLED GI TO ASK IF OK WITH MD. AWAITING CALL BACK. TOLERATING FULL LIQUID WELL
--- NOTE | 2020-01-19 11:42 | NUR ---
INITIAL ASSESSMENT: LADARIUS reviewed chart and spoke with nursing. Pt was admitted from home due to anemia/sepsis. Pt placed in Enhanced Isolation to r/o COVID-19. Pt's test is negative. Enhanced Isolation precautions discontinued. Pt had EGD earlier today and may need a colonoscopy prior to discharge. LADARIUS spoke with pt via phone. Introduced role of SW. Pt is alert/orientated and states he lives at home with his and son. Prior to admission, pt was using a walker. Pt states he is able to do his ADLs. 2 steps to enter the home. No steps inside. Pt was recently on 5N and discharged home with [facility] in November. Pt is still currently on service with . Pt's PCP is Dr. Janessa Kwon. Plan is for pt to discharge home with when medically. LADARIUS faxed clinical info/COVID test results to and notified liaison. LADARIUS spoke with pt's son, Jr, via phone to confirm discharge plan. LADARIUS is following to assist as needed with discharge planning.
--- NOTE | 2020-01-19 12:38 | EKG ---
[facility] Leticia [place] [address] ELECTROCARDIOGRAM REPORT Name: TERRANCEEARLE BUCKLEYHEVER W Room #: 352- ADM IN M.R.#: [id number] Admission: 01/18/20 Attend Phys: Edelmira Burciaga Discharge: Date of : 34 Report #: [id number] THIS REPORT FOR: cc: Janessa Kwon Diane C. 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 : 1930 Requested By: Colleen Devries Order Number: [id number] MD: Angel Sloan Measurements Intervals Beeler Rate: 56 P: 31 AK: 217 QRS: 11 QRSD: 154 T: 1 QT: 494 QTc: 477 Interpretive Statements Sinus rhythm Borderline prolonged AK interval Right bundle branch block Compared to ECG 01/18/2020 10:51:21 Atrial premature complex(es) no longer present Electronically Signed On 01-19-2020 12:38:14 CDT by Angel Sloan [email or web address] <ELECTRONICALLY SIGNED> By: Angel Sloan MD, FAC 01/19/20 1238 1139 1139 Angel Sloan MD, [facility] /EPI
--- NOTE | 2020-01-19 13:40 | 2DMMODE ---
[facility] [address] [place] [address] 2 D/M-MODE ECHOCARDIOGRAM Name: HEVER MEADE Modesta Room #: 352-P ADM IN M.R.#: [id number] Admission: 01/18/20 Attend Phys: Edelmira Burciaga Discharge: Date of : 32 Report #: [id number] THIS REPORT FOR: cc: Janessa Kwon Diane C. DO Lammoglia, Francisco J. MD ~ APPROVED REPORT Study performed: 01/19/2020 12:27:21 EXAM: Comprehensive 2D, Doppler, and color-flow Echocardiogram Patient Location: Bedside Room #: 352 Status: routine BSA: 1.63 HR: 57 bpm BP: 96/42 mmHg Rhythm: NSR Other Information Study Quality: Good Indications Pre-Op clearance. Chest pain. Hx: MN, Afib, AICD, COPD. 2D Dimensions RVDd: 35.33 mm IVSd: 11.68 (7-11mm) LVOT Diam: 19.10 (18-24mm) LVDd: 61.87 mm PWd: 8.94 (7-11mm) LVDs: 48.94 (25-40mm) Aortic Root: 30.38 mm Volumes Left Atrial Volume (Systole) Single Plane 4CH: 53.26 mL Single Plane 2CH: 89.36 mL LA ESV Index: 46.00 mL/m2 Aortic Valve AoV Peak Jose Miguel.: 1.63 m/s AO Peak Gr.: 10.61 mmHg LVOT Max P.54 mmHg LVOT Max V: 0.62 m/s KAILEE Vmax: 1.09 cm2 [facility] [address] [place] [address] 2 D/M-MODE ECHOCARDIOGRAM Name: HEVER MEADE Room #: 352-P [facility]#: [id number] Admission: 01/18/20 Attend Phys: Edelmira Long Jun Discharge: Date of : 32 Report #: [id number] Mitral Valve E/A Ratio: 0.8 MV Decel. Time: 461.00 ms MV E Max Jose Miguel.: 0.41 m/s MV A Jose Miguel.: 0.49 m/s MV PHT: 133.69 ms IVRT: 83.04 ms Pulmonary Valve PV Peak Jose Miguel.: 0.90 m/s PV Peak Gr.: 3.22 mmHg Pulmonary Vein P Vein S: 0.64 m/s P Vein A: 0.21 m/s P Vein D: 0.41 m/s P Vein A Dur.: 184.5 msec P Vein S/D Ratio: 1.56 Tricuspid Valve TR Peak Jose Miguel.: 3.02 m/s TR Peak Gr.: 36.37 mmHg Left Ventricle Left ventricle is mildly dilated. Mild basal septal hypertrophy is present. Left ventricular systolic function is mildly decreased. LVEF is 45-50%. Mild diastolic dysfunction is present (impaired relaxation pattern). Right Ventricle The right ventricle is normal size. The right ventricular systolic function is normal. Device lead is present in the right ventricle. Atria Left atrium is moderately dilated. Right atrium is mildly dilated. Aortic Valve Aortic valve leaflets are mildly thickened and calcified. No aortic regurgitation is present. There is no aortic valvular stenosis. Mitral Valve The mitral valve is normal in structure. Mild mitral regurgitation. No evidence of mitral valve stenosis. Tricuspid Valve The tricuspid valve is normal in structure. Mild tricuspid [facility] [address] [place] [address] 2 D/M-MODE ECHOCARDIOGRAM Name: HEVER MEADE Room #: 352-P [facility] IN .R.#: [id number] Admission: 01/18/20 Attend Phys: Edelmira Cameron Discharge: Date of : 32 Report #: [id number] regurgitation. Estimated PAP 36mmHg + RAP. Pulmonic Valve The pulmonary valve is normal in structure. Mild pulmonic regurgitation. Great Vessels The aortic root is normal in size. Ascending aorta is not well visualized. IVC is not well visualized. Pericardium There is no pericardial effusion. <Conclusion> Left ventricle is mildly dilated. LVEF is 45-50%. Left atrium is moderately dilated. Right atrium is mildly dilated. Device lead is present in the right ventricle. Left atrium is moderately dilated. Right atrium is mildly dilated. Aortic valve leaflets are mildly thickened and calcified. The mitral valve is normal in structure. Mild mitral regurgitation. The tricuspid valve is normal in structure. Mild tricuspid regurgitation. Estimated PAP 36mmHg + RAP. The pulmonary valve is normal in structure. Mild pulmonic regurgitation. There is no pericardial effusion. <ELECTRONICALLY SIGNED> By: Melecio Dixon MD 01/19/20 1339 1339 38 Melecio Dixon MD /INF
[2020-01-19] MEDS ORDERED: PRADAXA75 MG PO (16:16)
[2020-01-20 04:13] VITALS: BP 145/51
[2020-01-20 06:01] LABS: HEMATOCRIT 25.8 % (42.0-52.0); HEMOGLOBIN 8.4 gm/dL (14.0-18.0); MCH 30.5 pg (26.0-34.0); MCHC 32.6 g/dL (28.0-37.0); MCV 93.6 fL (80.0-100.0); RBC 2.75 mil/uL (4.50-6.00); RDW 17.9 % (10.5-14.5); WBC 8.7 thou/uL (4.0-11.0)
[2020-01-20 06:48] LABS: CALCIUM 8.5 mg/dL (8.5-10.1); CREATININE 2.4 mg/dL (0.7-1.3); POTASSIUM 5.3 mmol/L (3.5-5.1)
[2020-01-20 08:02] VITALS: BP 125/51
[2020-01-20] MEDS ORDERED: PROAIR HFA8.5 GM INH (09:15)
--- NOTE | 2020-01-20 11:02 | NUR ---
Pt initially with low BMI recorded however wt was inaccurate. Pt states weighs daily and usual is 145 lb and reports no changes in his weight. Eats well, good appetite. Weight corrected in computer. Low nutrition risk.
[2020-01-20 16:08] VITALS: BP 142/46
--- NOTE | 2020-01-20 17:23 | NUR ---
RECEIVED PT'S CARE AROUND 0740; PT. ON BED; RESTING WITH EYES CLOSED; EQUAL CHEST EXPANSION NOTICED; SR ON THE MONITOR; DURING AM ASSESSMENT PT. AOX4; C/O PAIN OVER BACK; AM MEDICATION GIVEN; NOTICED WHEEZING; HX OF COPD; PER PT. TAKES AT HOME BREATHING TREATMENTS QID; PHYSICIAN NOTIFIED; ORDERS ON PLACED; IV LASIX GIVEN; DURING THE AFTERNOON REMAINED WHEZZING; PER PT REPORT PT. WHEEZING WHYLE WORKING; NOTICED CONGESTED & COUGHING; PHYSICIAN NOTIFIED; NO ANSWER BACK; CONTACTED DIANN ELECTRIC TRACK SWITCH MAINTAINER; ORDERS ON PLACED; RT NOTIFIED; STARTED BOWEL AROUND 1600; PT. EDUCATED ABOUT IT; ST. UNDERSTANDING; DROWSY; ENCOURAGE TO DRINK FROM TIME TO TIME; MONITORING; ASSESSMENT CHARGED; FOLLOWING POC; WILL PASS ON REPORT;
[2020-01-20 20:00] VITALS: BP 111/52
--- NOTE | 2020-01-21 03:41 | NUR ---
ASSUMED CARE 1900. PT ALERT ORIENTED. INTERMITTENT FORGETFULNESS. VITALS STABLE. BOWEL PREP INITIATED . PT UNABLE TO FINISH THE GOLYTELY PREP BY MIDNIGHT. PT CURRENTLY PASSING LOOSE STOOL BUT NOT COMPLETELY CLEAR. WILL CONTINUE TO MONITOR
[2020-01-21 04:10] LABS: HEMATOCRIT 26.2 % (42.0-52.0); HEMOGLOBIN 8.5 gm/dL (14.0-18.0); MCH 30.1 pg (26.0-34.0); MCHC 32.4 g/dL (28.0-37.0); MCV 92.7 fL (80.0-100.0); RBC 2.82 mil/uL (4.50-6.00); RDW 17.8 % (10.5-14.5); WBC 20.1 thou/uL (4.0-11.0)
[2020-01-21 04:58] VITALS: BP 134/39
[2020-01-21 07:54] VITALS: BP 115/40
[2020-01-21 12:26] VITALS: BP 118/29
--- NOTE | 2020-01-21 14:14 | NUR ---
Pt screened by the 5N liason/team and he will not qualify for another acute rehab stay. SNF or return home with hh and private duty recommended. Dc needs discussed with the pt via phone. He indicates that he does not feel strong enough to return directly home with [facility] and would be interested in going to [facility] for rehab. DC production planner to send referral. DC timeframe is uncertain pending his plan of care. Pt has colonoscopy today and wbc elev. UA pending. Started on IV atb. PT/OT is working with the pt. Message left for his dtr/el Sewell to call cm. Pt notes they have 4hrs a day of private duty to help them with meals, housekeeping and laundry. I believe the dtr arranged this a few months ago with [facility]. Their HH provider is Maral [facility]. Will follow.
--- NOTE | 2020-01-21 15:18 | NUR ---
FAXED REFERRAL TO [facility] SPOKE WITH MARISEL IN ADM SHE RECEIVED REFERRAL AND WILL ACCEPT AT DISCHARGE. IF PT WOULD DISCHARGE OVER WEEKEND PLEASE FAX DC ORDERS TO [phone] AND CALL TO ARRANGE TRANSPORT TO [phone].
[2020-01-21 20:30] VITALS: BP 117/38
[2020-01-21 20:51] LABS: URINE BILIRUBIN NEGATIVE (Negative); URINE BLOOD 2+ (Negative); URINE CLARITY CLEAR; URINE COLOR YELLOW; URINE GLUCOSE-RANDOM* NEGATIVE (Negative); URINE KETONES NEGATIVE (Negative); URINE LEUKOCYTES-REFLEX NEGATIVE (Negative); URINE NITRITE-REFLEX NEGATIVE (Negative); URINE PROTEIN (DIPSTICK) NEGATIVE (Negative); URINE UROBILINOGEN 0.2 E.U./dl (0.2-1.0)
--- NOTE | 2020-01-21 20:52 | NUR ---
RECEIVED PT'S CARE AROUND 0710; PT. ON BED; RESTING WITH EYES CLOSED; EQUAL CHEST RISING NOTICED; SR ON THE MONITOR; DURING AM ASSESSMENT PT. REMAINED ABOUT NPO; REQUESTED TO BE CHANGED; AM MEDICATION GIVEN; NO C/O PAIN; ELEVATED WBC NOTICED; PHYSICIAN NOTIFIED; ORDERS ON PLACED; GONE FOR PROCEDURE AROUND 1030; BACK CLOSE TO 1300; SPEECH THERAPY NOTIFIED; STRAIGH CATH PERFORMED TO OBTAINED URINE SAMPLE; REQUEST SAMPLE TO BE SENT BY NURSE AID; PER LAB SAMPLE DID NOT HAVE LABEL OVER CONTAINER; NEED NEW URINE SAMPLE; PT. NOT ABLE TO VOID DURING THE AFTERNOON; BLADDER SCANNER SHOWED 98 ML; PASSED ON REPORT; SA ON THE MONITOR; TOLERATED WELL DIET; ASSESSMENT CHARGED; FOLLOWING POC; PASSED ON REPORT;
[2020-01-21 20:59] LABS: BACTERIA-REFLEX 1-9 Few /HPF (None Seen); CRYSTALS None Seen /LPF (None Seen); HYALINE CASTS 0-3 Few /LPF (None Seen); SQUAMOUS 0-3 Few /LPF (0-3); URINE WBC-REFLEX 0-5 Rare /HPF (0-5)
[2020-01-21 21:00] LABS: URINE RBC 3-10 Few /HPF (0-2)
--- NOTE | 2020-01-22 03:54 | NUR ---
PT ALERT AND ORIENTED COLONOSCOPY DONE YESTERDAY. PT VOIDING PER THE THE URINAL. C/O BACK PAIN. PAIN MEDS PRN. DENIES NAUSEA AND VIMITING. VSS. WILL CONTINUE TO MONITOR
[2020-01-22 04:00] VITALS: BP 102/60
[2020-01-22 04:10] LABS: HEMATOCRIT 25.1 % (42.0-52.0); MCH 29.9 pg (26.0-34.0); MCV 93.3 fL (80.0-100.0); RBC 2.69 mil/uL (4.50-6.00); RDW 17.9 % (10.5-14.5); WBC 13.4 thou/uL (4.0-11.0)
[2020-01-22 08:05] VITALS: BP 101/46
[2020-01-22 13:55] LABS: CALCIUM 8.2 mg/dL (8.5-10.1); CREATININE 2.5 mg/dL (0.7-1.3); POTASSIUM 5.6 mmol/L (3.5-5.1)
[2020-01-22 16:29] VITALS: BP 91/44
--- NOTE | 2020-01-22 19:32 | NUR ---
ASSESSMENT DOCUMENTED, BP SOFT AND VSS, S/B RAMONE AND PATIENT WILL STAY, AND PLAN ON DISCHARGE HARLEEN. PROGRESSING TOWARDS GOALS AND WILL CONTINUE WITH POC.
[2020-01-22 20:11] VITALS: BP 124/49
[2020-01-23 01:43] VITALS: BP 135/47
--- NOTE | 2020-01-23 01:53 | NUR ---
CARE ASSUMED AT 1900. PT AO X3. DENIE CHEST PAIN, NAUSEA OR VOMITING. VITALS STABLE WITH LOW DIASTOLIC BP. REPORTS BACK PAIN. ALLEVIATED MILDLY BY TYLENOL. ORDERS RECEIVED FROM HOUSE SUP TO TRANSFER PATIENT. PT TRANSFERRED TO ROOM 438 AT 0130. PT TRANSFERRED IN STABLE CONDITION.
--- NOTE | 2020-01-23 01:58 | NUR ---
PATIENT TRANSFERRED FROM ROOM 218 VIA BED WITH RN. ALERT AND ORIENTED X2-3. DENIES PAIN. REMEMBERS BEING ON THIS FLOOR BEFORE. VERY PLEASANT AND COOPERATIVE. WILL MONITOR.
[2020-01-23 08:20] VITALS: BP 121/57
[2020-01-23 11:18] LABS: CALCIUM 8.3 mg/dL (8.5-10.1); CREATININE 2.1 mg/dL (0.7-1.3); POTASSIUM 4.7 mmol/L (3.5-5.1)
[2020-01-23 16:56] VITALS: BP 123/56
--- NOTE | 2020-01-23 18:53 | NUR ---
ASSUMMED PT CARE AT APPROXIMATELY 0700. PT A&0 X 3 AND FORGETFUL. ASSESSMENT CHARTED. FALL PRECAUTIONS IN PLACE. PT DENIES HAVING CHEST PAIN. PT DENIES HAVING SOB. PT STATED HE HAD CHRONIC BACK PAIN. PT RECEIVED ANALGESICS. PT STATED ANALGESICS HELPED RELIEVE PAIN. VITAL SIGNS STABLE. PT COMFORTABLE IN BED. PT DENIES HAVING FURTHER CONCERNS.
[2020-01-23 19:22] VITALS: BP 107/62
--- NOTE | 2020-01-24 02:42 | NUR ---
PATIENT ALERT AND ORIENTED X2-3. COOPERATIVE WITH CARE, HOWEVER, CAN BE IMPULSIVE AT TIMES GETTING OUT OF BED. LARGE BM DURING THE NIGHT. WILL HAVE A VIDEO SWALLOW TODAY. EASILY REDIRECTED WITH CONFUSION. WILL MONITOR.
[2020-01-24 03:19] VITALS: BP 117/51
[2020-01-24 08:06] VITALS: BP 123/60
[2020-01-24] MEDS ORDERED: AUGMENTIN 500-1 EACH PO (09:43)
[2020-01-24] MEDS ORDERED: PULMICORT0.5 MG/21 INH (09:43)
[2020-01-24] MEDS ORDERED: PACERONE 200 M200 M1 PO (09:43)
--- NOTE | 2020-01-24 11:07 | NUR ---
cm faxed orders and covid test result to [facility] at [facility] [phone]. cm notified by pt's nruse during rounds that pt awaiting viode swallow and diet from speech therapy prior to d/c. pt's nurse to f/u w/cm to provide time, so transportation can be scheduled. pt and pt's family will need to notified of d/c once confirmed.
--- NOTE | 2020-01-24 16:08 | NUR ---
PT WAS TO DC TODAY TO [facility] BUT THEY ARE REQUIRING A COVID TEST DONE 24-48 HRS PRIOR TO DC PT HAD TEST DONE ON 01/17. PHYSICIAN TO ORDER AND PT TO DC TOMORROW.
[2020-01-24 16:10] VITALS: BP 112/54
--- NOTE | 2020-01-24 18:32 | NUR ---
PT IS AOX2-3, VSS, NO C/O PAIN. PT USES URINAL, UP TO BSC WITH 1 PERSON ASSIST. PT USES CALL LIGHT APPROPRIATELY. FALL PRECAUTIONS IN PLACE. WILL CONTINUE TO MONITOR.
[2020-01-24 19:50] VITALS: BP 113/61
--- NOTE | 2020-01-25 02:32 | NUR ---
PT CARE ASSUMED WITH PATIENT IN BED WATCHING TV.PT IS A/O X3.PT IS UP WITH X1 ASSIST TO BEDSIDE COMMODE.PT ALSO USES URINAL FOR ELIMINATION.PT IS ON A PUREED DIET.MEDICATION WITH APPLE SAUCE CRUSHED.PT HAS A PACEMAKER.PT HAS A LARGE BM THIS AM.PT CALLS APPROPRIETELY.PT C/O HEADACHE AND HAD TYLENOL WITH RELIEF.WILL CONTINUE TO MONITOR POC
--- NOTE | 2020-01-25 08:14 | NUR ---
cm faxed orders and updated covid test results. [phone].
[2020-01-25 08:17] VITALS: BP 139/71
[2020-01-25 08:18] VITALS: BP 139/71
--- NOTE | 2020-01-25 10:48 | NUR ---
Assumed care of pt at 0700. Denies pain. Video swallow completed yesterday. Room air. x1 assist. Alert and oriented. Meds whole in apple sauce. Call light within reach. Fall precautions in place.
--- NOTE | 2020-01-25 16:06 | PATH ---
[facility] [address] [place] [address] PATHOLOGY RPT PROCEDURE Name: MAURICIO MEADE Modesta Room #: 438-P DIS IN M.R.#: [id number] Admission: 01/18/20 Date of : 34 Discharge: 01/25/20 Report #: [id number] Path Case #: [id number] [facility] Accession Number: [id number] . 01 Material submitted: . stomach - BIOPSY OF ANTRUM R/O H. PYLORI . 01 Clinical history: . ANEMIA, SEPSIS, SOB, PUI, NON-CARDIAC CHEST PAIN . 02 Diagnosis: Gastric mucosa, antrum, endoscopic biopsy: - Mild chronic gastritis. - Negative for intestinal metaplasia or atrophy. - Negative for Helicobacter pylori (properly-controlled immunohistochemical stain performed). . (IUV:mml; 01/25/2020) QL 01/25/2020 1346 Local . 02 Electronically signed: . Kaylee U Vadlamani, MD, Pathologist NPI- [id number] . 01 Gross description: . The specimen is received in formalin, labeled "Mauricio Meade, BX of antrum" and consists of 2 fragments of pink-carmona tissue measuring 0.3 x 0.2 cm and 0.6 x 0.3 cm which are entirely submitted in A1. (SDY; 01/21/2020) SYU/SYU 01/21/2020 1301 Local . 02 Pathologist provided ICD-10: K29.50 . 02 CPT . 627718, H12496 Specimen Comment: A courtesy copy of this report has been sent to [phone] Specimen Comment: [phone], Specimen Comment: Report sent to ,DR FIGUEROA / DR SPRAGUE Performed at: [address] [id number] MD Deric Reilly MD Phone: [phone] Performed at: [address] [id number] [address] [address] PATHOLOGY RPT PROCEDURE Name: MAURICIO MEADE Room #: 438-P DIS IN M.R.#: [id number] Admission: 01/18/20 Date of : 34 Discharge: 01/25/20 Report #: [id number] Path Case #: [id number] MD Kaylee Ricardo MD Phone: [phone]
== END 2020-01-25 12:07 | DRG 871 ==
LOC: ER 10:45 → 3W 14:59 → 2N 14:59 → 3W 16:40 → 2N 01-19 17:50 → 4S 01-23 01:38
PROVIDERS: Emergency Medicine; Hospitalist; Internal Medicine; Nurse Practitioner; ADMIT Hospitalist; ATTEND Hospitalist
PROC: 30233N1 Transfusion of Nonautologous Red Blood Cells into Peripheral Vein, Percutaneous Approach (ICD-10-PCS; principal; 2020-01-18)
PROC: 0DB68ZX Excision of Stomach, Via Natural or Artificial Opening Endoscopic, Diagnostic (ICD-10-PCS; 2020-01-19)
PROC: 0DJD8ZZ Inspection of Lower Intestinal Tract, Via Natural or Artificial Opening Endoscopic (ICD-10-PCS; 2020-01-21)
DX: A41.9 Sepsis, unspecified organism (principal); E43 Unspecified severe protein-calorie malnutrition; K57.31 Diverticulosis of large intestine without perforation or abscess with bleeding; K29.71 Gastritis, unspecified, with bleeding; N18.4 Chronic kidney disease, stage 4 (severe); N17.9 Acute kidney failure, unspecified; J45.901 Unspecified asthma with (acute) exacerbation; R07.9 Chest pain, unspecified; F03.90 Unspecified dementia, unspecified severity, without behavioral disturbance, psychotic disturbance, mood disturbance, and anxiety; K64.8 Other hemorrhoids; I25.10 Atherosclerotic heart disease of native coronary artery without angina pectoris; I48.0 Paroxysmal atrial fibrillation; E78.00 Pure hypercholesterolemia, unspecified; D50.9 Iron deficiency anemia, unspecified; I12.9 Hypertensive chronic kidney disease with stage 1 through stage 4 chronic kidney disease, or unspecified chronic kidney disease; I25.5 Ischemic cardiomyopathy; E87.5 Hyperkalemia; I08.1 Rheumatic disorders of both mitral and tricuspid valves; K44.9 Diaphragmatic hernia without obstruction or gangrene; K21.9 Gastro-esophageal reflux disease without esophagitis; E78.5 Hyperlipidemia, unspecified; M06.9 Rheumatoid arthritis, unspecified; E03.9 Hypothyroidism, unspecified; J44.9 Chronic obstructive pulmonary disease, unspecified; Z20.828 Contact with and (suspected) exposure to other viral communicable diseases; I25.2 Old myocardial infarction; Z79.899 Other long term (current) drug therapy; Z87.891 Personal history of nicotine dependence; Z95.810 Presence of automatic (implantable) cardiac defibrillator
CPT/HCPCS: 10081; 10195; 10879; 62110; 62900; 70005

== ENCOUNTER 2020-02-01 13:23 | Emergency (ER) | payer OTHER, MEDICARE ==
[~2020-02-01] VITALS: Ht 170.2 cm; Wt 66.7 kg
[~2020-02-01 13:23] MED LIST changes: +AUGMENTIN 500-1 EACH PO; +PACERONE 200 M200 M1 PO; +PROAIR HFA8.5 GM INH; +PULMICORT0.5 MG/21 INH
[2020-02-01 17:08] VITALS: BP 102/54
== END 2020-02-01 17:08 ==
LOC: ER 13:23
DX: S40.022A Contusion of left upper arm, initial encounter (principal); S40.021A Contusion of right upper arm, initial encounter; S80.12XA Contusion of left lower leg, initial encounter; S80.11XA Contusion of right lower leg, initial encounter; S09.90XA Unspecified injury of head, initial encounter; H11.32 Conjunctival hemorrhage, left eye; J44.9 Chronic obstructive pulmonary disease, unspecified; E03.9 Hypothyroidism, unspecified; E78.5 Hyperlipidemia, unspecified; I48.91 Unspecified atrial fibrillation; I25.2 Old myocardial infarction; F17.210 Nicotine dependence, cigarettes, uncomplicated; Z79.82 Long term (current) use of aspirin; Z79.899 Other long term (current) drug therapy; W05.0XXA Fall from non-moving wheelchair, initial encounter; Y93.89 Activity, other specified; Y92.89 Other specified places as the place of occurrence of the external cause; Y99.8 Other external cause status

== ENCOUNTER 2020-04-24 20:02 | Inpatient (IN) | payer OTHER, MEDICARE ==
[~2020-04-24] VITALS: Ht 172.7 cm; Wt 85.4 kg
[2020-04-24 20:03] VITALS: BP 138/49
[2020-04-24 20:41] LABS: ABSOLUTE NEUTROPHILS 10.2 thou/uL (1.4-8.2); BASOPHILS 0.4 % (0.0-2.0); EOSINOPHILS 0.9 % (0.0-3.0); HEMATOCRIT 24.9 % (42.0-52.0); HEMOGLOBIN 7.9 gm/dL (14.0-18.0); LYMPHOCYTES 10.9 % (24.0-44.0); MCH 30.5 pg (26.0-34.0); MCHC 31.7 g/dL (28.0-37.0); MCV 96.4 fL (80.0-100.0); MONOCYTES 5.2 % (1.0-8.0); PLATELET COUNT 234 thou/uL (150-400); POLYS 82.6 % (36.0-66.0); RBC 2.58 mil/uL (4.50-6.00); RDW 19.3 % (10.5-14.5); WBC 12.4 thou/uL (4.0-11.0)
[2020-04-24 20:43] LABS: URINE BILIRUBIN NEGATIVE (Negative); URINE BLOOD NEGATIVE (Negative); URINE CLARITY CLEAR; URINE COLOR YELLOW; URINE GLUCOSE-RANDOM* NEGATIVE (Negative); URINE KETONES NEGATIVE (Negative); URINE NITRITE-REFLEX NEGATIVE (Negative); URINE PROTEIN (DIPSTICK) NEGATIVE (Negative); URINE SPECIFIC GRAVITY 1.015 (1.005-1.035); URINE UROBILINOGEN 0.2 E.U./dl (0.2-1.0)
[2020-04-24 20:44] LABS: URINE LEUKOCYTES-REFLEX 2+ (Negative)
[2020-04-24 20:53] LABS: ANION GAP 11 mmol/L (7-16); BUN 38 mg/dL (7-18); CALCIUM 8.6 mg/dL (8.5-10.1); CHLORIDE 102 mmol/L (98-107); CO2 21 mmol/L (21-32); CREATININE 2.4 mg/dL (0.7-1.3); GLUCOSE 79 mg/dL (74-106); POTASSIUM 4.8 mmol/L (3.5-5.1); SODIUM 134 mmol/L (136-145)
[2020-04-24 21:02] LABS: ALBUMIN 2.6 g/dL (3.4-5.0); MAGNESIUM 1.9 mg/dL (1.8-2.4); SGOT 45 U/L (15-37); SGPT 41 U/L (16-63); TOTAL BILIRUBIN 0.5 mg/dL (0.2-1.0); TOTAL PROTEIN 6.8 g/dL (6.4-8.2); TROPONIN-I <0.06 ng/mL (<0.06)
[2020-04-24 21:02] LABS: BACTERIA-REFLEX 1-9 Few /HPF (None Seen); CRYSTALS None Seen /LPF (None Seen); HYALINE CASTS >10 Many /LPF (None Seen); MUCUS 0-3 Light strn/LPF (None Seen); SQUAMOUS 0-3 Few /LPF (0-3); URINE RBC 0-2 Rare /HPF (0-2); URINE WBC-REFLEX 6-15 Few /HPF (0-5)
[2020-04-24 21:25] LABS: BE(vivo) -6.9 mmol/L (-2 to +3); HCO3 18.4 mmol/L (22.0-26.0); PCO2 VENOUS 35.7 mmHg (41.0-51.0); PO2 VENOUS 27.5 mmHg (35.0-45.0)
[2020-04-25 00:01] VITALS: BP 108/52
[2020-04-25 05:25] LABS: HEMATOCRIT 24.5 % (42.0-52.0); HEMOGLOBIN 7.6 gm/dL (14.0-18.0); MCHC 30.9 g/dL (28.0-37.0); MCV 97.1 fL (80.0-100.0); RBC 2.53 mil/uL (4.50-6.00); RDW 19.5 % (10.5-14.5); WBC 17.8 thou/uL (4.0-11.0)
[2020-04-25 05:42] LABS: CALCIUM 8.6 mg/dL (8.5-10.1); CREATININE 2.3 mg/dL (0.7-1.3); POTASSIUM 4.7 mmol/L (3.5-5.1)
--- NOTE | 2020-04-25 07:15 | EKG ---
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 04/25/20 0715 06 06 Angel Sloan MD, FACC /EPI
--- NOTE | 2020-04-25 10:40 | NUR ---
89-year-old male who presents to the emergency department for complaints of dyspnea, productive cough with white to pale yellow sputum, back pain and fever at home per report. Chest x-ray which showed stable chest with cardiomegaly and chronic bilateral interstitial prominence. Patient had elevated white blood cell count with a leukocytosis of 12,000, he also was found to have a lactic acid of 2.5. He was treated with IV Rocephin, IV azithromycin and IV hydration. He did become hypotensive in the emergency department and received sepsis bolus fluids. The patient was admitted to the hospital for further medical evaluation and treatment of SIRS, UTI, Acute Hypoxic respiratory failure, COPD, Hypotension with a history of hypertension. CAD, Ischemic cardiomyopathy, atrial fibrillation, and CKD. Cardiology was consulted and found: CAD with known occluded RCA without intervention. Paroxysmal atrial fibrillation without A-fib per tele monitoring and continue on Amiodarone. Trop less than 0.06. Acute Respiratory Failure but COVID Negative. Ischemic Cardiomyopathy, HTN needing gentle hydration and albumin, Anemia with Hgb less than 7.6, COPD, RA, Fever, with sepsis protocol and COVID NEGATIVE now times 2. Patient was last a patient here at [facility] from 01-17 and was discharged 01-25-2020 to [facility]. Patient arrived via EMS ground. Per last CM assessment the Dtr/DPO Melodie Olivera listed at [phone], attempted to call at 1031, [phone] without answer and a voicemail was left to return a call at 1039. Notably in last assessment patient lives with spouse and disabled son Jr at [phone]. Also found that patients PCP is Dr. Janessa Kwon. Prior to the 01-17 admission patient had been living at home with spouse and son and utilizing [employer] and per daughter Melodie at that time; patient had 4 hours per day of private duty care. NOTE: POST DISCHARGE CM notes that a Bertha Watergate at [facility] and [employer] called and requested a call back at [phone] and on 02/14/2020 CM did attempt to call and left a voicemail that patient had discharged. CM will follow for discharge needs and follow up with DPOA.
[2020-04-25 11:54] VITALS: BP 108/56
--- NOTE | 2020-04-25 12:19 | NUR ---
ATTEMPTED TO CALL REPORT. WAS ADVISED THEY WOULD NEED TO CALL BACK
--- NOTE | 2020-04-25 13:35 | 2DMMODE ---
[facility] [place] [address] 2 D/M-MODE ECHOCARDIOGRAM Name: HEVER MEADE Room #: 170-1 ADM IN M.R.#: [id number] Admission: 04/24/20 Attend Phys: Tristan Freeman MD Discharge: Date of : 34 Report #: [id number] THIS REPORT FOR: cc: Jaenssa Kwon,Janessa Babin,Jacky Castaneda MD ~ APPROVED REPORT Study performed: 04/25/2020 12:48:40 EXAM: Comprehensive 2D, Doppler, and color-flow Echocardiogram Patient Location: ER Status: routine BSA: 1.78 HR: 82 bpm BP: 111/61 mmHg Rhythm: PAF Other Information Study Quality: Good Indications Short of breath. Hx: CAD, ISCM, PAF, AICD, COPD. 2D Dimensions RVDd: 47.16 mm IVSd: 9.87 (7-11mm) LVOT Diam: 21.76 (18-24mm) LVDd: 58.85 mm PWd: 7.09 (7-11mm) LVDs: 46.19 (25-40mm) Aortic Root: 33.91 mm Volumes Left Atrial Volume (Systole) Single Plane 4CH: 107.14 mL Single Plane 2CH: 74.42 mL LA ESV Index: 53.00 mL/m2 Aortic Valve LVOT Max P.54 mmHg LVOT Max V: 0.62 m/s Mitral Valve [facility] [address] [place] [address] 2 D/M-MODE ECHOCARDIOGRAM Name: HEVER MEADE Room #: 170-1 ADM IN M.R.#: [id number] Admission: 04/24/20 Attend Phys: Tristan Freeman MD Discharge: Date of : 34 Report #: [id number] MV Decel. Time: 192.57 ms MV E Max Jose Miguel.: 0.90 m/s Pulmonary Valve PV Peak Jose Miguel.: 0.81 m/s PV Peak Gr.: 2.61 mmHg Tricuspid Valve TR Peak Jose Miguel.: 2.97 m/s RAP Estimate: 10.00 mmHg TR Peak Gr.: 35.35 mmHg PA Pressure: 45.00 mmHg Left Ventricle Left ventricle is mildly dilated. There is normal left ventricular wall thickness. Left ventricular systolic function is moderately decreased. LVEF is 35-40%. This study is not technically sufficient to allow evaluation of the LV diastolic function due to paroxysmal atrial fibrillation. Right Ventricle Right ventricle is dilated and hypokinetic. Atria Severe biatrial enlargement. Aortic Valve The aortic valve is normal in structure. No aortic regurgitation is present. There is no aortic valvular stenosis. Mitral Valve The mitral valve is normal in structure. Severe mitral regurgitation Tricuspid Valve The tricuspid valve is normal in structure. Moderate tricuspid regurgitation. Estimated PAP is 42mmHg. Pulmonic Valve Moderate pulmonic regurgitation. Great Vessels The aortic root is normal in size. IVC is dilated and collapses <50% with inspiration. Pericardium There is no pericardial effusion. [facility] [address] [place] [address] 2 D/M-MODE ECHOCARDIOGRAM Name: HEVER MEADE Room #: 170-1 ADM IN M.R.#: [id number] Admission: 04/24/20 Attend Phys: Tristan Freeman MD Discharge: Date of : 34 Report #: [id number] <Conclusion> Left ventricle is mildly dilated. Left ventricular systolic function is moderately decreased. LVEF is 35-40%. Right ventricle is dilated and hypokinetic. Severe biatrial enlargement. Severe mitral regurgitation Moderate tricuspid regurgitation. Estimated PAP is 42mmHg. <ELECTRONICALLY SIGNED> By: Jacky aPez MD 04/25/205 34 34 Jacky Paez MD /INF
--- NOTE | 2020-04-25 13:38 | NUR ---
ATTEMPTED TO CALL REPORT, WAS TOLD THAT 'NURSE IS AT LUNCH' AND SHE WILL CB WHEN SHE RETURNS
[2020-04-25 14:23] VITALS: BP 133/64
[2020-04-25 14:45] VITALS: BP 134/61
--- NOTE | 2020-04-25 17:36 | NUR ---
RECEIVED PT FROM ER. PT HAS SHORTNESS OF AIR UPON EXERTION. PT IS COMFORTABLE, FALL PRECAUTIONS IN PLACE. PT IS PLEASANT, A&O X4, DENIES HEARING DIFFICULTIES, BUT NEEDS QUESTIONS REPEATED. PT NEEDS MOD ASSIST TO TOILET. SCDS ON CALF BILAT. NO CONCERNS AT THIS TIME.
[2020-04-25 19:42] VITALS: BP 112/47
--- NOTE | 2020-04-26 03:07 | NUR ---
COMPLAIN OF ARTHRITIS PAIN ON HIS LEFT KNEE.TYLENOL GIVEN.POSITIVE BLOOD CULTURE,LEFT MESSAGE TO STEEL BURNER.MONITOR SHOWS PACED RHYTHM.POC CONTINUED.
[2020-04-26 05:21] LABS: ALBUMIN 2.4 g/dL (3.4-5.0); CALCIUM 8.6 mg/dL (8.5-10.1); CREATININE 2.5 mg/dL (0.7-1.3); PHOSPHORUS 3.9 mg/dL (2.6-4.7); POTASSIUM 4.5 mmol/L (3.5-5.1)
[2020-04-26 05:22] LABS: ABSOLUTE NEUTROPHILS 16.6 thou/uL (1.4-8.2); BASOPHILS 0.1 % (0.0-2.0); HEMATOCRIT 22.3 % (42.0-52.0); HEMOGLOBIN 7.1 gm/dL (14.0-18.0); LYMPHOCYTES 2.5 % (24.0-44.0); MCH 30.9 pg (26.0-34.0); MCHC 31.9 g/dL (28.0-37.0); MCV 96.9 fL (80.0-100.0); MONOCYTES 3.1 % (1.0-8.0); PLATELET COUNT 186 thou/uL (150-400); POLYS 94.3 % (36.0-66.0); RDW 19.1 % (10.5-14.5); WBC 17.6 thou/uL (4.0-11.0)
[2020-04-26 06:02] VITALS: BP 124/73
[2020-04-26 07:45] VITALS: BP 114/72
[2020-04-26 11:14] VITALS: BP 121/61
--- NOTE | 2020-04-26 14:29 | NUR ---
cm reviewed chart. PT WAS ADMITTED DUE TO SEPSIS AND IS ON IV ANBX. Pt is alert/orientated and states he lives at home with his and son. Prior to admission, pt was using a walker. Pt pt reports that he has 2 steps to enter the home. No steps inside. Pt HAS A PAST HX OF BEING ON 5N WELL RECEIVING HOME HEALTH FROM [facility] IN THE PAST. PT REPORTS THAT HE RECEIVES HOME CARE FROM [address] A WEEK FROM 7-12. HE REPORTS THEY ASSIST WITH ANY ASSISTANCE HE NEEDS INCLUDING CHORES. PT REPORTS THAT HE IS HOPEFUL HE WILL BE ABLE TO RETURN HOME AT DISCHARGE. CM DISCUSSED POSSIBLE NEED FOR HH AND PT IS AGREEABLE TO USE [facility] [facility] [employer] IF NEEDED AGAIN AT D/C. CM FAXED REFERRAL TO [facility]. CM WILL CONTINUE TO FOLLOW TO ASSIST NEEDED.
--- NOTE | 2020-04-26 15:12 | NUR ---
ASSESSMENT: CM REVIEWED CHART AND SPOKE WITH PT. PT WAS ADMITTED DUE TO SEPSIS AND IS CURRENTLY ON IV ANBX. PT ALSO RECEIVING IV STEROIDS. PT REPORTS LIVING IN A HOUSE WITH HIS AND ADULT SON. PT REPORTS ABOUT 2 STEPS WITH HANDRAIL TO ENTER. PT REPORTS BEING INDEPENDENT WITH ADLS. PT STATES THAT HE HAS A COMPANY THAT COMES IN 5X/WEEK FROM 7AM-1200 TO HELP ASSIST THEM WITH ANY NEEDS. HE REPORTS HIS DAUGHTER JASE SET THIS UP. CM ATTEMPTED TO CONTACT JASE BUT NO ANSWER AT THIS TIME. CM ALSO ATTEMPTED TO CONTACT PTS SON BUT NO ANSWER. CM SPOKE WITH PTS YAMILA WHO REPORTS PT IS NORMALLY PRETTY INDEPENDENT. THEY REPORT THAT THEIR DAUGHTER JASE LIVES IN [facility] AND WORKS BUT SHOULD CONTACT CM BACK. IS ALSO UNAWARE OF COMPANY THAT HELPS ASSIST THEM BUT BELIEVES IT IS [employer]. PT HAS HAD [facility] HH IN THE PAST AND HAS ALSO HAD A PAST HX OF BEING ON 5N AND GOING TO [facility]. PT REPORTS HE IS AGREEABLE FOR HH IF NEEDED AGAIN AND REFERRAL WAS SENT TO [facility] WHO HE HAS HAD BEFORE. CM WILL CONTINUE TO FOLLOW TO ASSIST NEEDED.
--- NOTE | 2020-04-26 15:59 | NUR ---
ASSESSMENT CHARTED. PT ALERT AND ORIENTED. VSS. EVALUATED BY PT AND OT. UP IN THE CHAIR THIS AM. RT TREATMENT GIVEN ORDERED. SR ON TELE. NO CARDIAC OR RESPIRATORY DISTRESS NOTED. PT PROGRESSING WELL TOWARDS DISCHARGE GOAL.
[2020-04-26 17:00] VITALS: BP 119/64
[2020-04-26 20:16] VITALS: BP 116/63
[2020-04-27 04:45] VITALS: BP 132/73
[2020-04-27 04:52] LABS: ALBUMIN 2.5 g/dL (3.4-5.0); CALCIUM 8.1 mg/dL (8.5-10.1); CREATININE 2.7 mg/dL (0.7-1.3); PHOSPHORUS 4.1 mg/dL (2.6-4.7); POTASSIUM 4.3 mmol/L (3.5-5.1)
--- NOTE | 2020-04-27 06:18 | NUR ---
ASSUMED PATIENT CARE AT 1845. VITAL SIGNS STABLE WITH PATIENT HAVING NO COMPLAINTS OF NAUSEA. PATIENT DID COMPLAIN OF PAIN MULTIPLE TIMES WHICH WAS EFFECTIVELY TREATED WITH TYLENOL. FULLY ORIENTED, PATIENT IS ABLE TO PARTICIPATE IN CARE AND CALL APPROPRIATELY FOR NEEDS. BREATHING STABLE ON ROOM AIR EVIDENCED BY ASSESSMENTS AND SPOT OXYGENATION CHECKS. UP MULTIPLE TIMES WITH ASSISTANCE INCIDENT FREE. CONTINUE PLAN OF CARE.
[2020-04-27 07:42] LABS: HEMATOCRIT 22.9 % (42.0-52.0); HEMOGLOBIN 7.3 gm/dL (14.0-18.0); MCH 31.1 pg (26.0-34.0); MCHC 31.7 g/dL (28.0-37.0); RBC 2.34 mil/uL (4.50-6.00); RDW 19.6 % (10.5-14.5); WBC 12.9 thou/uL (4.0-11.0)
[2020-04-27 07:53] VITALS: BP 146/67
[2020-04-27 11:28] VITALS: BP 126/61
--- NOTE | 2020-04-27 16:35 | NUR ---
If patient to dc home over weekend and home health is ordered. Call Maral Alicia [phone] alert of discharge. Fax orders to [phone]
[2020-04-27 16:40] VITALS: BP 143/82
--- NOTE | 2020-04-27 18:06 | NUR ---
RECEIVED PT'S CARE AROUND 0735; PT. ON BED; RESTING WITH EYES CLOSED; EQUAL CHEST RISING NOTICED; VPACED/SR ON THE MONITOR; DURING AM ASSESSMENT PT. AOX4; NO C/O PAIN; AM MEDICATIONS GIVEN; UP TO CHAIR; EDUCATED ABOUT FALL PRECAUTIONS; ST. UNDERSTANDING; DURING THE AFTERNOON AFTER WORKING WITH PT PT. REQUESTED PRN ACETAMINOPHEN; MEDICATION GIVEN; REASSESSMENT PT. RESTING WITH EYES CLOSED; DURING THE AFTERNOON RECEIVED CALL FROM DAUGHTER; UPDATED ABOUT PT'S HEALTH AND POC; ASSESSMENT CHARGED; FOLLOWING POC; WILL PASS ON REPORT;
[2020-04-27 19:00] VITALS: BP 145/74
[2020-04-28 03:50] VITALS: BP 127/67
[2020-04-28 03:59] LABS: ABSOLUTE NEUTROPHILS 9.8 thou/uL (1.4-8.2); BASOPHILS 0.1 % (0.0-2.0); HEMATOCRIT 23.3 % (42.0-52.0); HEMOGLOBIN 7.5 gm/dL (14.0-18.0); LYMPHOCYTES 4.1 % (24.0-44.0); MCHC 32.2 g/dL (28.0-37.0); MCV 96.4 fL (80.0-100.0); MONOCYTES 3.1 % (1.0-8.0); PLATELET COUNT 211 thou/uL (150-400); POLYS 92.7 % (36.0-66.0); RBC 2.42 mil/uL (4.50-6.00); RDW 19.1 % (10.5-14.5); WBC 10.6 thou/uL (4.0-11.0)
[2020-04-28 04:15] LABS: ALBUMIN 2.6 g/dL (3.4-5.0); CALCIUM 8.4 mg/dL (8.5-10.1); CREATININE 2.7 mg/dL (0.7-1.3); MAGNESIUM 2.1 mg/dL (1.8-2.4); PHOSPHORUS 4.2 mg/dL (2.6-4.7); POTASSIUM 4.5 mmol/L (3.5-5.1); TOTAL BILIRUBIN 0.2 mg/dL (0.2-1.0); TOTAL PROTEIN 6.5 g/dL (6.4-8.2)
--- NOTE | 2020-04-28 05:15 | NUR ---
ASSUMED PATIENT CARE AT 1845. VITAL SIGNS STABLE WITH PATIENT HAVING NO COMPLAINTS OF NAUSEA. PATIENT DID COMPLAIN OF CHRONIC PAIN WHICH WAS TREATED APPROPRIATELY THROUGH MEDICATION. FULLY ORIENTED, PATIENT IS ABLE TO CALL APPROPRIATELY FOR NEEDS. UP WITH ASSISTANCE MULTIPLE TIMES INCIDENT FREE. CONTINUE PLAN OF CARE.
[2020-04-28 08:00] VITALS: BP 118/64
[2020-04-28 11:20] VITALS: BP 122/54
[2020-04-28 17:07] VITALS: BP 145/80
--- NOTE | 2020-04-28 17:33 | NUR ---
ASSESSMENT CHARTED - MEDS PER JUN - GIVEN TYLENOL X 2 DOSES FOR CO'S OF BACK PAIN WITH DESIRED RELIEF. BHARATI DIET AND FLUIDS. NO CO'S OF NAUSEA. UP IN THE CHAIR THIS AM FROM BREAKFAST TIL AFTER LUNCH - BHARATI WELL - DOES BECOME SOB WITH MIN EXERTION. RESP TREATMENTS NOW SCHEDULED. PT RESTING AT THE PRESENT TIME WITH NO CO'S.
[2020-04-28 19:30] VITALS: BP 135/68
[2020-04-28 23:58] LABS: CALCIUM 9.1 mg/dL (8.5-10.1); CREATININE 2.7 mg/dL (0.7-1.3)
[2020-04-29] VITALS (37 sets, daily range): BP systolic 58–161; BP diastolic 33–128
[2020-04-29 00:01] LABS: POTASSIUM 5.6 mmol/L (3.5-5.1)
[2020-04-29 00:04] LABS: ALBUMIN 2.7 g/dL (3.4-5.0); TOTAL BILIRUBIN 0.2 mg/dL (0.2-1.0); TOTAL PROTEIN 6.1 g/dL (6.4-8.2)
[2020-04-29 00:08] LABS: BE(vivo) -20.1 mmol/L (-2 to +3); HCO3 7.7 mmol/L (22.0-26.0); PCO2 24.7 mmHg (35.0-45.0); PO2 396.8 mmHg (80.0-100.0); pH 7.113 (7.360-7.450); sO2 99.7 % (92.0-98.0)
[2020-04-29 00:25] LABS: D-DIMER 12.14 ug/mLFEU (0.19-0.50)
--- NOTE | 2020-04-29 01:10 | NUR ---
ASSESSMENT CHARTED, MEDS CHARTED GIVEN. PATIENT RESTING IN ROOM AT START OF SHIFT, IV ACCESS HAS BECOME UNATTACHED TO PATIENT. NEW IV WAS PLACED IN RIGHT FOREARM. PATIENT DEVELOPED AUDIBLE WHEEZES WITH ADDITIONAL WORK OF BREATHING, CALLED RT FOR BREATHING TREATMENT. PATIENT BECAME UNRESPONSIVE, NO PULSE WAS FOUND, CODE BLUE WAS CALLED. CODE PROGRESSED UNTIL THE PATIENT WAS REVIVED, PATIENT WAS TRANSFERED TO ICU FOR CONTINUED CARE. AND DAUGHTER (DPOA) WAS CALLED AND UPDATED. IS UNABLE TO VISIT SHE HAS NO MEANS OF TRANSPORTATION. HAS DAILY HOME HEALTH CARE WORKERS CARING FOR HER.
[2020-04-29 01:33] LABS: CALCIUM 8.6 mg/dL (8.5-10.1); CREATININE 2.8 mg/dL (0.7-1.3); HEMATOCRIT 24.8 % (42.0-52.0); HEMOGLOBIN 7.5 gm/dL (14.0-18.0); MAGNESIUM 2.3 mg/dL (1.8-2.4); MCH 30.2 pg (26.0-34.0); MCHC 30.1 g/dL (28.0-37.0); MCV 100.5 fL (80.0-100.0); PHOSPHORUS 7.3 mg/dL (2.6-4.7); PLATELET COUNT 242 thou/uL (150-400); POTASSIUM 5.3 mmol/L (3.5-5.1); RBC 2.47 mil/uL (4.50-6.00); RDW 19.8 % (10.5-14.5); TROPONIN-I 0.11 ng/mL (<0.06); WBC 15.7 thou/uL (4.0-11.0)
[2020-04-29 01:36] LABS: APTT 21.6 Seconds (24.5-32.8); INR 1.3; PROTIME 13.5 Seconds (9.3-11.4)
[2020-04-29 03:32] LABS: ABSOLUTE NEUTROPHILS 14.8 thou/uL (1.4-8.2); ANISOCYTOSIS 3+; OVALOCYTES 2+; POLYCHROMASIA 1+; SCHISTOCYTES FEW
[2020-04-29 03:33] LABS: BURR CELLS 2+; POIKILOCYTOSIS 2+
[2020-04-29 06:04] LABS: HEMATOCRIT 23.6 % (42.0-52.0); HEMOGLOBIN 7.5 gm/dL (14.0-18.0); MCH 30.7 pg (26.0-34.0); MCHC 31.7 g/dL (28.0-37.0); MCV 96.9 fL (80.0-100.0); PLATELET COUNT 183 thou/uL (150-400); RBC 2.44 mil/uL (4.50-6.00); RDW 18.6 % (10.5-14.5); WBC 11.4 thou/uL (4.0-11.0)
[2020-04-29 06:17] LABS: APTT 25.4 Seconds (24.5-32.8); INR 1.3; PROTIME 13.7 Seconds (9.3-11.4)
[2020-04-29 06:19] LABS: ALBUMIN 2.3 g/dL (3.4-5.0); CALCIUM 7.8 mg/dL (8.5-10.1); CREATININE 2.5 mg/dL (0.7-1.3); PHOSPHORUS 4.8 mg/dL (2.5-4.9)
[2020-04-29 06:26] LABS: MAGNESIUM 2.2 mg/dL (1.8-2.4); PHOSPHORUS 4.9 mg/dL (2.5-4.9); TROPONIN-I 0.15 ng/mL (<0.06)
--- NOTE | 2020-04-29 06:29 | NUR ---
2345- Patient here from . Patient intubated and s/p code blue. Patient unresponsive. Heart rate low 100's with adequate blood pressure. Pulse present. 0015- Chilled saline started as well as targeted temperature management. Pt reached 33 degrees at 0145. ABG results called to Dr. Yost. Orders recieved. Summary- Patient heart rate has been steady in the 50's. Blood pressure has been stable in the 120's. Propofol infusing for vent management. Marginal u/o. Lasix given. Spoke with patient's daughter, Melodie this am. Updated on patient condition. They will be deciding which will be the designated visitor since he is in ICU. See documentatin on interventions for assesment details.
[2020-04-29 06:56] LABS: POTASSIUM 3.7 mmol/L (3.5-5.1)
[2020-04-29 07:26] LABS: ABSOLUTE NEUTROPHILS 9.9 thou/uL (1.4-8.2); METAMYELOCYTES 1 %
[2020-04-29 07:27] LABS: ANISOCYTOSIS 2+; OVALOCYTES 1+
--- NOTE | 2020-04-29 07:52 | NUR ---
Per Dr. Yost, discontinue hypothermia protocol and start rewarming patient. Patient too unstable to continue with hypothermia. Pressures hypotensive at this time. Pulse weak, however present. Started a bolus of NS.
--- NOTE | 2020-04-29 08:28 | NUR ---
PER DEPT POLICY, PT PLACED ON HOLD WITH TX TO ICU. REQUEST NEW P.T. ORDERS ONCE PT IS ABLE TO PARTICIPATE IN THERAPEUTIC ACTIVITIES.
[2020-04-29 09:21] LABS: BE(vivo) -11.9 mmol/L (-2 to +3); HCO3 14.6 mmol/L (22.0-26.0); PCO2 35.7 mmHg (35.0-45.0); PO2 252.4 mmHg (80.0-100.0); sO2 99.5 % (92.0-98.0)
[2020-04-29 09:22] LABS: pH 7.231 (7.360-7.450)
--- NOTE | 2020-04-29 09:44 | NUR ---
PER DR. GRIMES, GIVE LEVOTHYROXINE, 75MCG ORDERED, AND ALSO GIVEN THE 50MCG ORDERED TODAY TOO. THEN START THE 100MCG TOMORROW.
--- NOTE | 2020-04-29 09:45 | NUR ---
Patient blood pressure reading noted to have map less than 60mmhg. measurement was retaken, then switched sites x2 and retaken. Readings were consitent, patient was then paced at a tachy rate, pulse was noted to be present. Patient only had peripheral lines, which are edematous at sites. Dr. Yost was here and placed and emergent central line and an emergent arterial line for more accurate blood pressure reading for gtt titration. Per MD order, one liter of NS started, then Levophed, then vasopressin. When arterial line was placed, titration occurred for blood pressure support. Family was notified and are on their way. Dr. Freeman rounded and will come talk and update patient family when they arrive. Dr. Armendariz was here and assessed patient, no new orders at this time. Patient in critical condition. Per Dr. Yost, order to stop hypothermia given. Settings were changed and patient restarted warming at 0752. Nurse to continue to monitor patient status.
--- NOTE | 2020-04-29 10:26 | NUR ---
started rewarming at 0752, reach temp at 1026, patient remains critical, however, blood pressure improved and heart rate less irritible. Patient work of breathing is elevated and gasps are noted.
--- NOTE | 2020-04-29 12:45 | NUR ---
1230- Family here at bedside. Dr. Freeman and Dr. Dow talked with them. They expressed they want to think about withdrawing care. When Dr. Freeman left, after talking to family members, patients daughter came to RN and expressed that they want to remove the breathing tube and make him comfortable to pass away. This was informed to Dr. Yost, who was here, and then Dr. Freeman. Orders received, and patient was extubated at 1230. Morphine given as patient was gasping, then ativan was given as patient was grimacing, aggitated, and appeared uncalm. After a bit of rest with family providing reassurance, patient was more calm and appeared comfortable.
--- NOTE | 2020-04-29 19:00 | NUR ---
Patient remains calm and appears comfortable. Family left this afternoon. They expressed that they would not be back tonight. Nurse talked with patients daughter bubba and updated her on patients status. She expressed he should have a wallet up here and she would like that. She expressed she will be up here after 0900, then the patients and daughter will be going back to [place] for a while. home requested is [facility], off [facility]. Patients daughter expressed they talked with them already.
--- NOTE | 2020-04-30 06:08 | NUR ---
SPOKE WITH PTS DAUGHTER (JASE) REGAURDING PTS CONDITION. ALL QUESTIONS ANSWERED.
[2020-04-30 08:09] VITALS: BP 142/73
[2020-04-30 16:20] VITALS: BP 73/46
--- NOTE | 2020-04-30 16:35 | NUR ---
ASSUMMED PT CARE AT APPROXIMATELY 0700. PT NONRESPONSIVE AND LETHARGIC. COMFORT CARE ORDERED. EDUCATED PT ABOUT S/S OF PROGRESSION OF . SPOKE C PT ABOUT PT'S POC. VITAL SIGNS STABLE. SUCTIONED PT PRN. INFORMED DR. GRIMES OF PT'S COUPIOUS SECRETIONS. DR. GRIMES STATED UNDERSTANDING AND NEW ORDERS IMPLEMENTED. SECRETIONS DECREASED. PT RECEIVED ANALGESICS. TRANSFERING UP TO 4S. GAVE REPORT TO RN. RN STATED UNDERSTANDING AND DENIED HAVING FURTHER QUESTIONS. TELE DC. SPOKE C CARDIO AND RECEIVED ORDERS TO TURN OFF ICD. ICD PERSONAL CAREGIVER CAME OUT AND TURNED OFF ICD. PT COMFORTABLE. NO DISTRESS NOTED.
--- NOTE | 2020-04-30 17:34 | NUR ---
PATIENT ARRIVED ON UNIT AT 1608 V.S 98.3 14 73 73/46 83%RA. SKIN PALE NUNEZ TO D/D. PT IS COMFORT CARE.
--- NOTE | 2020-04-30 19:34 | NUR ---
AT 17:35 PATIENT IN BED IN ROOM 435 NO RESPIRATIONS NO PULSE CONFIRMED BY SECOND RN. CALL TO DR GRIMES AND OB GYN. CALLED DAUGHTER ON HER CELL. CALLED [employer]. FOLLOWED NURSING SUMMARY WORKSHEET. PT GAVE NAME OF HOME. [facility] [phone]
== END 2020-04-30 21:04 | DRG 871 ==
LOC: ER 20:02 → 2N 22:03 → EROBS 22:03 → 2N 04-25 14:22 → ICU 04-29 00:16 → 2N 04-30 06:53 → 4S 04-30 16:21
PROVIDERS: Emergency Medicine; Internal Medicine Nephrology; Nurse Practitioner; Nurse Practitioner Family; ADMIT Internal Medicine; ATTEND Internal Medicine
PROC: 5A12012 Performance of Cardiac Output, Single, Manual (ICD-10-PCS; principal; 2020-04-29)
PROC: 4A133B1 Monitoring of Arterial Pressure, Peripheral, Percutaneous Approach (ICD-10-PCS; principal; 2020-04-29)
PROC: 05HY33Z Insertion of Infusion Device into Upper Vein, Percutaneous Approach (ICD-10-PCS; principal; 2020-04-29)
PROC: 5A1935Z Respiratory Ventilation, Less than 24 Consecutive Hours (ICD-10-PCS; principal; 2020-04-29)
PROC: 4A133J1 Monitoring of Arterial Pulse, Peripheral, Percutaneous Approach (ICD-10-PCS; principal; 2020-04-29)
PROC: 0BH17EZ Insertion of Endotracheal Airway into Trachea, Via Natural or Artificial Opening (ICD-10-PCS; principal; 2020-04-29)
PROC: 03HY32Z Insertion of Monitoring Device into Upper Artery, Percutaneous Approach (ICD-10-PCS; principal; 2020-04-29)
PROC: B54NZZA Ultrasonography of Left Upper Extremity Veins, Guidance (ICD-10-PCS; principal; 2020-04-29)
DX: A41.9 Sepsis, unspecified organism (principal); J96.21 Acute and chronic respiratory failure with hypoxia; I50.23 Acute on chronic systolic (congestive) heart failure; G92 Toxic encephalopathy; J18.9 Pneumonia, unspecified organism; N39.0 Urinary tract infection, site not specified; N18.4 Chronic kidney disease, stage 4 (severe); I13.0 Hypertensive heart and chronic kidney disease with heart failure and stage 1 through stage 4 chronic kidney disease, or unspecified chronic kidney disease; N17.9 Acute kidney failure, unspecified; J44.1 Chronic obstructive pulmonary disease with (acute) exacerbation; J44.0 Chronic obstructive pulmonary disease with (acute) lower respiratory infection; I48.0 Paroxysmal atrial fibrillation; I25.10 Atherosclerotic heart disease of native coronary artery without angina pectoris; E03.9 Hypothyroidism, unspecified; D64.9 Anemia, unspecified; M06.9 Rheumatoid arthritis, unspecified; R68.0 Hypothermia, not associated with low environmental temperature; E78.5 Hyperlipidemia, unspecified; I25.5 Ischemic cardiomyopathy; I95.9 Hypotension, unspecified; E78.00 Pure hypercholesterolemia, unspecified; M19.90 Unspecified osteoarthritis, unspecified site; F03.90 Unspecified dementia, unspecified severity, without behavioral disturbance, psychotic disturbance, mood disturbance, and anxiety; I08.1 Rheumatic disorders of both mitral and tricuspid valves; I46.9 Cardiac arrest, cause unspecified; Z20.822 Contact with and (suspected) exposure to COVID-19; I25.2 Old myocardial infarction; Z95.0 Presence of cardiac pacemaker; Z79.82 Long term (current) use of aspirin; Z79.899 Other long term (current) drug therapy; Z87.891 Personal history of nicotine dependence; Z90.49 Acquired absence of other specified parts of digestive tract
CPT/HCPCS: 10078; 10081